=== PATIENT | female | born 2000 | race Caucasian/White ===

== ENCOUNTER → 2019-04-15 13:30 | Outpatient (BNVA) | payer MEDICAID, SELFPAY | PROVIDERS: PCP Nurse Practitioner; Visit Provider Obstetrics & Gynecology | DX: Z34.83 Encounter for supervision of other normal pregnancy, third trimester (principal) | CPT/HCPCS: 81000 ==

== ENCOUNTER → 2019-04-29 13:55 | Outpatient (BNVA) | payer MEDICAID, SELFPAY | PROVIDERS: PCP Nurse Practitioner; Visit Provider Obstetrics & Gynecology | DX: Z34.90 Encounter for supervision of normal pregnancy, unspecified, unspecified trimester (principal) | CPT/HCPCS: 81000; 84315; 87081 ==

== ENCOUNTER → 2019-05-06 14:02 | Outpatient (BNVA) | payer MEDICAID, SELFPAY | PROVIDERS: PCP Nurse Practitioner; Visit Provider Obstetrics & Gynecology | DX: Z01.89 Encounter for other specified special examinations (principal) | CPT/HCPCS: 81000; 84315 ==

== ENCOUNTER → 2019-05-13 15:00 | Outpatient (BNVA) | payer MEDICAID, SELFPAY | PROVIDERS: Family Provider Nurse Practitioner; PCP Nurse Practitioner; Visit Provider Obstetrics & Gynecology | DX: Z01.89 Encounter for other specified special examinations (principal) | CPT/HCPCS: 81000; 84315 ==

== ENCOUNTER 2019-05-15 01:00 | Inpatient (IN) | payer MEDICAID, SELFPAY ==
[2019-05-15] VITALS (57 sets, daily range): BP systolic 0–161; BP diastolic 0–108; PULSE 86–124; RESP 16–18; TEMP 36.6–37; O2SAT 96–100
--- NOTE | 2019-05-15 01:43 | PC.NURSE ---
Dr. Grider at bedside to assess patient and discuss POC
[2019-05-15] MEDS: lactated ringers 1,000 ML 999 ML IV (01:46)
--- NOTE | 2019-05-15 01:55 | P.HP_ITS ---
Providers/Chief Complaint Admitting Physician: david salinas DO Primary Care Provider: MED Zee Chief Complaint: CONTRACTIONS HPI CHIEF FINANCIAL OFFICER History of Present Illness Ashley Gardiner is a 19 year old female at 39 + weeks with uncomplicated history. Presents to labor and delivery with uterine contractions described as every 4 minutes onset last p.m. Denies any rupture of membranes no bleeding no headaches no visual changes no right upper quadrant midepigastric pain. Upon presenting to labor and delivery category 1 tracing uterine contractions every 4 minutes moderate to palpation cervix is 6 cm dilated vertex bulging membranes. Patient is admitted for labor/delivery. Group B strep is negative Patient denies antepartum complications Medications vitamins Allergies none Review of Systems General: Reports: 10 or more systems reviewed and unremarkable except in HPI and below Const: Reports: fever, chills and fatigue Eyes: Denies: change in vision Card: Denies: chest pain, palpitations, irregular heart rhythm or swelling of feet/ankles Resp: Denies: shortness of breath, productive cough, non-productive cough or wheezing GI: Denies: abdominal pain, nausea or vomiting : Denies: flank pain, difficulty urinating, painful urination, urinary frequency or urinary urgency Musc: Denies: back pain, extremity pain or extremity swelling Skin/Breast: Denies: rash Neuro: Denies: headache Psych: Denies: anxiety or depression Endo: Denies: cold intolerance, hot flashes or heat intolerance Varun/Lymph: Denies: easy bruising or easy bleeding All/Imm: Denies: hives Medications/Allergies Allergies Allergy/AdvReac Type Severity Reaction Status Date / Time No Known Allergies Allergy Unverified 04/12/19 07:34 [facility] CHIEF FINANCIAL OFFICER Statuses (acute, chronic, etc) shown below reflect problem list status as previously entered and may not be historically accurate Family History Family/Other Diabetes maternal great grandmother Social History Smoking and tobacco status: never smoked Alcohol intake: never History History 2 Term 1 Miscarriages/Ectopic 0 0 Living Children 1 Past Pregnancies Del. Date GA/Weeks Outcome Route Wt Inf Gender Labor Lgth Comp. Anesth esia Location 05/05/17 37 live - full term Vaginal 2.821 kg Female local Other Female Reproductive History Hx Age of Menarche: 12 Duration of menses: 6-7 days Cycle Length: every 30 days Menstrual flow: normal/abnormal: normal Sexual History Are you sexually active?: Yes How long have you been with your current partner?: since 2015 What is your sexual preference?: Heterosexual Hx Sexually Transmitted Diseases: No Have you ever tested positive for HIV?: No Contraception control method: Pills and Progestin IUCD Vitals/I&O/Wt Last Vital Signs Pulse 105 H 05/15/19 01:44 BP 141/94 05/15/19 01:44 Physical Exam Narrative: EXAM NARRATIVE: Alert and oriented no acute distress. Category 1 tracing uterine contractions every 4 minutes. Skin clear no rashes HEENT unremarkable Neck supple nontender no masses Lungs clear to auscultation Heart regular sinus rhythm no murmur Abdomen gravid soft nontender palpable contractions moderate vertex by Odin's estimated weight 7 pounds Pelvic exam: Deferred at this time by me per nurse patient is 80% effaced 6 cm vertex -3/5 bulging membranes Pelvis clinically proven to 6+ pounds Extremities grossly intact Neurologic: Patella DTR 2/4 no clonus no edema Psych oriented to time place and circumstance A&P Assessment and plan (1) Uterine contractions: Patient is admitted at 39+ weeks and early labor. Category 1 tracing uterine contractions every 4 minutes. Anticipate vaginal delivery. Patient does require epidural anesthesia notified. Patient counseled for labor and delivery understands cannot predict outcome possible need for operative delivery. All questions answered. Permits have been signed. Status: Acute Attestations Medical Necessity Statement*: Admit for labor Coding Level of Care Code Acute Safety Associate for g Fwd Diagnoses Uterine contractions
[2019-05-15 02:16] LABS: Basophils % 0.2 %; Eosinophils # 0.1 10^3/uL (0.0-0.8); Eosinophils % 0.6 %; Hematocrit 30.2 % (37.0-47.0); Hemoglobin 10.3 g/dL (11.5-15.3); Lymphocytes # 1.9 10^3/uL (1.5-6.5); Lymphocytes % 14.6 %; Mean Corpuscular HGB Conc 34.1 g/dL (30.0-36.0); Mean Corpuscular Hemoglobin 28.9 pg (28.0-34.0); Mean Corpuscular Volume 84.6 fL (81-99); Mean Platelet Volume 11.4 fL (7.4-10.4); Monocytes # 0.7 10^3/uL (0.2-0.9); Neutrophils # 10.2 10^3/uL (1.8-8.0); Neutrophils % 77.8 %; Nucleated Red Blood Cells % 0 %; Platelet Count 210 10^3/cmm (130-400); Red Blood Count 3.57 10^6/uL (4.1-5.3); Red Cell Distribution Width 11.9 % (12.1-15.1); White Blood Count 13.1 10^3/uL (4.5-13.0)
[2019-05-15] MEDS: lactated ringers 1,000 ML 125 ML IV (02:55)
--- NOTE | 2019-05-15 03:44 | P.PN_ITS ---
SATELLITE TECHNICIAN Subjective Subjective: Interval history: Patient doing well epidural in place category 1 tracing Labor: Station: -1 Amniotic Membrane Status: Bulging Vitals/I&O/Wt Last Vital Signs Pulse 110 H 05/15/19 03:43 BP 151/98 05/15/19 03:43 Pulse Ox 100 05/15/19 03:40 Physical Exam Narrative: EXAM NARRATIVE: Alert and oriented no acute distress comfortable with epidural. Cervical examination 100% effaced/9 cm/vertex/+2/5 AROM clear fluid Data : 05/15/19 01:30 A&P Additional A&P Information Amniotomy performed clear fluid now 9 cm with epidural in place anticipate vaginal delivery. Attestations Medical Necessity Statement*: none Coding Level of Care Code Acute Cable Systems Installer for Rebeka Hagen
--- NOTE | 2019-05-15 03:51 | PC.NURSE ---
in manager non profit room and requested for delivery. to beside
--- NOTE | 2019-05-15 04:16 | PM.DELIVERY ---
 Delivery Note: Date of delivery: May 15, 2019 Pre-Delivery Course: Unremarkable. Category 1 tracing spontaneous uterine contractions labor epidural. Delivery: With epidural in place category 1 tracing patient progressed nicely through first stage of labor becoming complete and complete and +4/5. With 1 set of maternal pushes had spontaneous vaginal delivery viable male occiput anterior. Weight 3320 g Apgars 7/9. Delayed cord clamping was performed with infant laying on mom's abdomen. Cord was clamped and cut and infant handed to nurses in good condition. Mother was given IV Pitocin with delivery of the body of the had good uterine contractility spontaneous delivery of placenta complete and three-vessel. Inspection of vagina cervix showed no laceration. Cord bloods were obtained new sponges were left inside the vagina. There were no complications baby in room with parents bonding. Post-Delivery Status: Doing well immediate A&P Assessment and plan (1) Uterine contractions: Status: Acute (2) Vaginal delivery: Doing well at this time Status: Acute Code(s): O80 - Encounter for full-term uncomplicated delivery Coding Level of Care Code Acute Rn Care Transition for Chg Fwd History Expanded Problem Focused Exam Expanded Problem Focused Medical Decision Making Moderate Complexity Diagnoses Uterine contractions Vaginal delivery O80 Time Spent (min) 35 Comment 35 minutes spent in direct patient care
--- NOTE | 2019-05-15 04:19 | ANES.PREANE2 ---
Pre-Anesthetic Assessment Pre-Anesthetic Assessment: Height/Weight: Pulse BP Pulse Ox 109 H 153/81 100 05/15/19 04:13 05/15/19 04:13 05/15/19 03:50 Preop Diagnosis: labor pain Proposed Procedure: epidural Familial anesthetic complications: none Was Beta Fawad taken within 24 hours: N/A Last Intake: 00:00 Social: Social History: No alcohol and No tobacco Exam: Pre-Anes Outpt Exam: alert, oriented x 3, clear to auscultation bilaterally and regular rate & rhythm Airway: Submandibular: WNL Cervical ROM: WNL MP: 1 Pulmonary: Pulmonary: None reported CV/HEM: CV/HEM: None reported : : None reported Hepatic: Hepatic: None reported GI: GI: None reported Metabolic: Metabolic: None reported Musc/skel: Musc/skel: None reported Neuropsych: Neuropsych: None reported Anesthetic Plan: ASA status: 2 Anesthesia: Anesthesia Evaluation and Regional (specify below) Other: lumbar epidural catheter Risk of > 500 ml blood loss (7ml/kg in children): No PFSH Anesthesia PFSH: Family History Family/Other Diabetes maternal great grandmother Social History Smoking and tobacco status: never smoked Alcohol intake: never Female Reproductive History: Para: 1 Spontaneous abortions: No Data Anesthesia CBC & Chem 7: 05/15/19 01:30 Other Labs: Laboratory Results - last 48 hr 05/15/19 01:30 WBC 13.1 H RBC 3.57 L Hgb 10.3 L Hct 30.2 L MCV 84.6 MCH 28.9 MCHC 34.1 RDW 11.9 L Plt Count 210 MPV 11.4 H Neut % (Auto) 77.8 Lymph % (Auto) 14.6 Bonner % (Auto) 5.0 Eos % (Auto) 0.6 Baso % (Auto) 0.2 Neut # (Auto) 10.2 H Lymph # (Auto) 1.9 Bonner # (Auto) 0.7 Eos # (Auto) 0.1 Baso # (Auto) 0.0 Nucleated RBC % (auto) 0 Nucleated RBCs # 0.0 Cardiac Studies: No Data to Display
--- NOTE | 2019-05-15 04:20 | ANES.PROC ---
Anesthesia Procedures Procedure/Date: 05/15/19 epidural Epidural: Time Out Performed: Yes Consents Signed: Procedure Consent Consent: risks and benefits reviewed and patient agrees to proceed Lumbar Level: L3-L4 Epidural position: sitting Epidural procedure: sterile prep of area, 1% lidocaine to numb the area (2cc), 18 g needle, negative for paresthesia passed, neg for paresthesia, test dose given, 1.5% xylocaine 1:200k epi (3cc), 0.2% Ropivacaine bolus ml (5cc given via pump), placed PCEA, no systemic response, sterile dressing applied, L.U.D. no apparent complications and 0.2% Ropiavacaine @ mls/hr (13cc/hr) Additional Comments: DIANNA at 4cm. catheter depth at skin is 9cm
[2019-05-15] MEDS: oxytocin 30 UNIT/500 ML BAG 600 UNIT IV (05:01)
[2019-05-15] MEDS: prenatal vitamin Capsule 1 CAP PO (08:39)
[2019-05-15] MEDS: docusate sodium 100 mg Capsule PO ×2 (08:39→18:41)
[2019-05-15] MEDS: alum-mag-hydroxide-sime 30 mL UDC PO (14:03)
[2019-05-15 17:00] LABS: Hematocrit 29.5 % (37.0-47.0); Hemoglobin 9.9 g/dL (11.5-15.3); Mean Corpuscular HGB Conc 33.6 g/dL (30.0-36.0); Mean Corpuscular Hemoglobin 28.6 pg (28.0-34.0); Mean Corpuscular Volume 85.3 fL (81-99); Mean Platelet Volume 10.9 fL (7.4-10.4); Platelet Count 221 10^3/cmm (130-400); Red Blood Count 3.46 10^6/uL (4.1-5.3); White Blood Count 11.1 10^3/uL (4.5-13.0)
[2019-05-16 04:00] VITALS: BP 114/76; PULSE 86; RESP 16; O2SAT 97
--- NOTE | 2019-05-16 07:56 | PC.NURSE ---
Updated Dr. Grider on patient status.
[2019-05-16] MEDS: prenatal vitamin Capsule 1 CAP PO (09:03)
[2019-05-16] MEDS: ferrous sulfate EC 325 mg Tablet PO (09:03)
[2019-05-16] MEDS: docusate sodium 100 mg Capsule PO (09:04)
[2019-05-16 10:15] VITALS: BP 133/82; PULSE 82; RESP 17; TEMP 37.1; O2SAT 97
--- NOTE | 2019-05-16 13:10 | PM.OBGYDC ---
Discharge Providers PHLEBOTOMY SERVICES TECHNICIAN Date of Admission: 05/15/19 01:00 Date of Discharge: 05/16/19 Attending Provider at Admission: Afshin Landry MD Attending Provider at Discharge: david salinas DO Primary Care Provider: MED Zee Diagnoses at Discharge Discharge Diagnosis (1) Uterine contractions: Status: Acute (2) Vaginal delivery: Status: Acute (3) Term delivered: Status: Acute Problem details: Patient underwent spontaneous vaginal delivery uncomplicated Reason for Visit Reason for Visit: Reason For Visit: CONTRACTIONS Hospital Course Discharge Summary: Patient was admitted at term in active labor. Category 1 tracing. Underwent labor epidural and AR a.m. of clear fluid progressed nicely through first stage of labor. Spontaneous vaginal delivery occiput anterior uncomplicated. Viable Apgars 8/9 Postdelivery patient and baby did well up and about discharge home 24 hours after delivery. Plan follow-up in 2 weeks Information Peripartum Data: Infant Delivery Method: Vaginal Physical Exam Narrative: EXAM NARRATIVE: Alert and oriented no acute distress lying in bed. Has been up. Abdomen U- 2 firm nontender abdomen soft nontender Extremities intact full range of motion no calf tenderness Pelvic exam, deferred Discharge Data Data Completed and Pending: Labs from last 24 hours 05/15/19 16:40 WBC 11.1 RBC 3.46 L Hgb 9.9 L Hct 29.5 L MCV 85.3 MCH 28.6 MCHC 33.6 RDW 12.0 L Plt Count 221 MPV 10.9 H Vitals: Last Vital Signs Temp 98.7 F 05/16/19 10:15 Pulse 82 05/16/19 10:15 Resp 17 05/16/19 10:15 BP 133/82 05/16/19 10:15 Pulse Ox 97 05/16/19 10:15 Discharge Plan Discharge Patient Disposition: Home, Self-Care Condition: Stable Prescriptions: New acetaminophen 325 mg Tablet 650 mg PO Q6H PRN (Reason: Mild pain or temp > 100.4) 30 Days Qty: 100 RF: 0 acetaminophen 325 mg Tablet 650 mg PO Q6H PRN (Reason: mild pain for temp >100.4.) Qty: 100 RF: 0 ferrous sulfate 325 mg (65 mg iron) Tablet,Delayed Release (Dr/Ec) 325 mg PO DAILY Qty: 60 RF: 0 -U 106.5-1 mg Capsule 1 cap PO DAILY 100 Days Qty: 100 RF: 0 Continued prenat.vits,soha,qnj-lvwa-[id number] Tablet 1 tab PO ONCE RF: 0 Discharge Orders: Discharge Order (Routine); Ordered 05/16/19 Ordered By: David Salinas Discharge Diet: Regular Patient Instructions: Vitamins (By mouth), Breast Care for the Breast Feeding Mother (DC), Vaginal Delivery (DC), OB Discharge Report, OB Food/Drug Interaction Guide, OB Care at Home, OB Home Care, OB Proud Parent Packet, OB Vaginal Deliveries Discharge Attestations PHLEBOTOMY SERVICES TECHNICIAN Time Spent in Discharge Care*: less than 30 min Coding Level of Care Code Acute Shake Backboard Notcher for Chg Fwd Diagnoses Uterine contractions Vaginal delivery O80 Term delivered O80
[2019-05-16 14:15] VITALS: BP 118/72; PULSE 78; RESP 16; TEMP 36.9; O2SAT 97
== END 2019-05-16 16:01 | disposition home or self-care (01) | DRG 807 ==
LOC: OBGYN 01:28
PROVIDERS: Obstetrics & Gynecology Female Pelvic Medicine and Reconstructive Surgery; Admitting Provider Obstetrics & Gynecology; Family Provider Nurse Practitioner; PCP Nurse Practitioner; Visit Provider Obstetrics & Gynecology
DX: O62.3 Precipitate labor (principal); Z37.0 Single live birth; Z3A.39 39 weeks gestation of pregnancy
CPT/HCPCS: 12345; 36415; 51702; 59025; 59409; 85025; 85027; 96360; 96361; 99211; J2795

== ENCOUNTER → 2024-06-21 13:11 | Outpatient (BNVA) | payer BC, MEDICAID, SELFPAY | PROVIDERS: Family Provider Nurse Practitioner; PCP Nurse Practitioner; Visit Provider Nurse Practitioner Women's Health | DX: Z34.80 Encounter for supervision of other normal pregnancy, unspecified trimester (principal); Z34.90 Encounter for supervision of normal pregnancy, unspecified, unspecified trimester; N91.2 Amenorrhea, unspecified | CPT/HCPCS: 80307; 81025; 84702; 85025; 86592; 86762; 86803; 86850; 86900; 87086; 87340; 87491; 87591; 87661; 87806 ==

== ENCOUNTER → 2024-06-27 10:50 | Outpatient (BNVA) | payer BC, MEDICAID, SELFPAY | PROVIDERS: Family Provider Nurse Practitioner; PCP Nurse Practitioner; Visit Provider Nurse Practitioner Women's Health | DX: Z36.87 Encounter for antenatal screening for uncertain dates (principal); Z34.91 Encounter for supervision of normal pregnancy, unspecified, first trimester | CPT/HCPCS: 76801 ==

== ENCOUNTER → 2024-07-05 08:24 | Outpatient (BNVA) | payer BC, MEDICAID, SELFPAY | PROVIDERS: Family Provider Nurse Practitioner; PCP Nurse Practitioner; Visit Provider Nurse Practitioner Women's Health | DX: Z34.90 Encounter for supervision of normal pregnancy, unspecified, unspecified trimester (principal) | CPT/HCPCS: 84315 ==

== ENCOUNTER → 2024-07-13 10:38 | Outpatient (BNVA) | payer BC, MEDICAID, SELFPAY | PROVIDERS: Family Provider Nurse Practitioner; PCP Nurse Practitioner; Visit Provider Obstetrics & Gynecology | DX: Z34.90 Encounter for supervision of normal pregnancy, unspecified, unspecified trimester (principal); Z01.419 Encounter for gynecological examination (general) (routine) without abnormal findings | CPT/HCPCS: 84315; 87624 ==

== ENCOUNTER → 2024-08-01 09:44 | Outpatient (BNVA) | payer BC, MEDICAID, SELFPAY | PROVIDERS: Family Provider Nurse Practitioner; PCP Nurse Practitioner; Visit Provider Obstetrics & Gynecology | DX: Z34.90 Encounter for supervision of normal pregnancy, unspecified, unspecified trimester (principal) | CPT/HCPCS: 84315 ==

== ENCOUNTER 2024-08-30 14:13 | Outpatient (CLI) | payer BC, MEDICAID, SELFPAY | END 2024-08-30 14:14 | disposition home or self-care (01) | PROVIDERS: PCP Nurse Practitioner; Visit Provider Obstetrics & Gynecology | DX: Z36.9 Encounter for antenatal screening, unspecified (principal) | CPT/HCPCS: 76805 ==

== ENCOUNTER → 2024-09-27 14:47 | Outpatient (BNVA) | payer BC, MEDICAID, SELFPAY | PROVIDERS: Family Provider Nurse Practitioner; PCP Nurse Practitioner; Visit Provider Nurse Practitioner Women's Health | DX: Z34.90 Encounter for supervision of normal pregnancy, unspecified, unspecified trimester (principal); R82.71 Bacteriuria | CPT/HCPCS: 84315; 87077; 87086; 87184 ==

== ENCOUNTER → 2024-10-24 09:22 | Outpatient (BNVA) | payer BC, MEDICAID, SELFPAY | PROVIDERS: Family Provider Nurse Practitioner; PCP Nurse Practitioner; Visit Provider Nurse Practitioner Women's Health | DX: Z36.9 Encounter for antenatal screening, unspecified (principal); Z34.90 Encounter for supervision of normal pregnancy, unspecified, unspecified trimester | CPT/HCPCS: 76816; 82950; 84315; 85025; 87086 ==

== ENCOUNTER → 2024-11-09 13:26 | Outpatient (BNVA) | payer BC, MEDICAID, SELFPAY | PROVIDERS: Family Provider Nurse Practitioner; PCP Nurse Practitioner; Visit Provider Obstetrics & Gynecology | DX: Z34.90 Encounter for supervision of normal pregnancy, unspecified, unspecified trimester (principal) | CPT/HCPCS: 84315 ==

== ENCOUNTER → 2024-11-21 09:14 | Outpatient (BNVA) | payer BC, MEDICAID, SELFPAY | PROVIDERS: Family Provider Nurse Practitioner; PCP Nurse Practitioner; Visit Provider Obstetrics & Gynecology | DX: Z34.90 Encounter for supervision of normal pregnancy, unspecified, unspecified trimester (principal) | CPT/HCPCS: 84315 ==

== ENCOUNTER → 2024-12-06 10:16 | Outpatient (BNVA) | payer BC, MEDICAID, SELFPAY | PROVIDERS: PCP Nurse Practitioner; Visit Provider Nurse Practitioner Women's Health | DX: Z34.90 Encounter for supervision of normal pregnancy, unspecified, unspecified trimester (principal); Z3A.35 35 weeks gestation of pregnancy | CPT/HCPCS: 76816; 84315 ==

== ENCOUNTER → 2024-12-22 14:54 | Outpatient (BNVA) | payer BC, MEDICAID, SELFPAY | PROVIDERS: PCP Nurse Practitioner; Visit Provider Obstetrics & Gynecology | DX: Z34.90 Encounter for supervision of normal pregnancy, unspecified, unspecified trimester (principal) | CPT/HCPCS: 84315; 87081 ==

== ENCOUNTER → 2024-12-26 12:59 | Outpatient (BNVA) | payer BC, MEDICAID, SELFPAY | PROVIDERS: PCP Nurse Practitioner; Visit Provider Nurse Practitioner Women's Health | DX: Z34.90 Encounter for supervision of normal pregnancy, unspecified, unspecified trimester (principal); O99.019 Anemia complicating pregnancy, unspecified trimester | CPT/HCPCS: 84315; 85025 ==

== ENCOUNTER 2025-01-02 11:35 | Outpatient (CLI) | payer BC, MEDICAID, SELFPAY ==
[2025-01-02] VITALS (7 sets, daily range): BP systolic 119–128; BP diastolic 67–86; PULSE 92–123; BMI 28.3
== END 2025-01-02 14:19 | disposition home or self-care (01) ==
LOC: OPOB 11:35 → OBGYN 11:37
PROVIDERS: Absent Provider Obstetrics & Gynecology; PCP Nurse Practitioner Family; Visit Provider Family Medicine
DX: O26.899 Other specified pregnancy related conditions, unspecified trimester (principal); Z3A.00 Weeks of gestation of pregnancy not specified
CPT/HCPCS: 59025; 99211

== ENCOUNTER 2025-01-02 12:30 | Oncology outpatient (recurring) (ONCR) | payer BC, MEDICAID, SELFPAY ==
[2024-12-29 15:06] VITALS: BP 130/90; PULSE 97; RESP 16; TEMP 36.5; O2SAT 98
[2024-12-29] MEDS: iron sucrose 200 MG in sodium chloride 0.9% (100 ml) 100 ML IV (15:07)
[2024-12-29 15:47] VITALS: BP 120/83; PULSE 101; O2SAT 98
== END 2025-01-03 23:59 | disposition home or self-care (01) ==
PROVIDERS: PCP Nurse Practitioner; Visit Provider Nurse Practitioner Women's Health
DX: Z34.90 Encounter for supervision of normal pregnancy, unspecified, unspecified trimester (principal)
CPT/HCPCS: 84315; 96365; J1756

== ENCOUNTER 2025-01-06 10:00 | Oncology outpatient (recurring) (ONCR) | payer BC, MEDICAID, SELFPAY ==
[2025-01-04 12:39] VITALS: BP 124/80; PULSE 97; RESP 17; TEMP 36.6; O2SAT 99
[2025-01-04] MEDS: iron sucrose 200 MG in sodium chloride 0.9% (100 ml) 100 ML IV (12:45)
[2025-01-04 13:33] VITALS: BP 136/93
== END 2025-02-03 23:59 | disposition home or self-care (01) ==
PROVIDERS: PCP Nurse Practitioner Family; Visit Provider Nurse Practitioner Women's Health
DX: Z53.9 Procedure and treatment not carried out, unspecified reason (principal)
CPT/HCPCS: 96365; J1756; J7050

== ENCOUNTER 2025-01-09 11:40 | Inpatient (IN) | payer BC, MEDICAID, SELFPAY ==
[2025-01-09] VITALS (50 sets, daily range): BP systolic 122–156; BP diastolic 68–97; PULSE 83–128; RESP 16; TEMP 35.9–36.9; O2SAT 98–100; BMI 28.1
[2025-01-09 13:07] LABS: Hematocrit 31.6 % (36-47); Hemoglobin 9.90 g/dL (11.27-16.99); Mean Corpuscular HGB Conc 31.3 g/dL (30-55); Mean Corpuscular Hemoglobin 25.6 pg (27-33); Mean Corpuscular Volume 81.9 fl (85-98); Nucleated Red Blood Cells % 0 %; Platelet Count 184 10^3/cmm (157-399); Red Blood Count 3.86 10^6/uL (3.85-5.65); White Blood Count 9.35 10^3/uL (3.29-11.43)
[2025-01-09] MEDS: oxytocin 30 UNIT/500 ML BAG IV (13:18)
--- NOTE | 2025-01-09 14:10 | PM.OBGYHP ---
Providers/Chief Complaint Admitting Physician: Clarke Ceballos MD Primary BOBCAT OPERATOR: Clarke Ceballos MD Primary Care Provider: Jacquelin Kent NP Chief Complaint: monitoring bp HPI BOBCAT OPERATOR History of Present Illness Ashley Gardiner is a 24 year old female EDC January 13, 2025 At 39 w 3 d Seen in clinic today Found to have mildly elevated BPs No headache, blurry vision, pain No c/o + movements Now admitted for induction of labor Present Details : 3 Para: 2 Labs Rubella: Immune RPR: Negative GBS: Negative Medications/Allergies Home Medications ?Medication ?Instructions ?Recorded ?Confirmed ?Last Taken ?Type docusate sodium 100 mg capsule 100 mg PO BID #60 caps 12/06/24 01/09/25 Unknown Rx (Colace) magnesium hydroxide 400 mg/5 mL 15 ml PO BID PRN constipation #355 12/06/24 01/09/25 Unknown Rx oral suspension (Milk of Magnesia) mL Allergies Allergy/AdvReac Type Severity Reaction Status Date / Time No Known Allergies Allergy Verified 01/09/25 09:07 PFSH BOBCAT OPERATOR PFSH: Medical History No pertinent past medical history neghx: htn, dm, thyroid, dvt/pe PCP: None Surgical History No pertinent past surgical history Family History Family/Other Diabetes maternal great grandmother Father Hypertension Grandmother Diabetes Denies family history of Colon cancer Ovarian cancer Heart disease Breast cancer Uterine cancer Thyroid disease Stroke Social History Smoking and tobacco/nicotine status: never used tobacco/nicotine Alcohol intake: never Substance/Drug Use: never Other Female Reproductive History: Hx Age of Menarche: 12 Duration of menses: 6-7 days Cycle Length: every 30 days Menstrual flow: normal/abnormal: normal History History History 3 Term 2 0 Miscarriages/Ectopic 0 Living Children 2 Past Pregnancies Del. Date GA/Weeks Outcome Route Wt Inf Gender Labor Lgth Comp. Anesthesia Location 05/05/17 37 live - full term Vaginal 6 lb 3.5 oz Female local Care MARIA ELENA Calculator Estimated Delivery Date Method Current WG Current Estimate 01/13/25 LMP (Certain) 39w 4d Other Estimates 01/10/25 Ultrasound #1 40w 0d Expected Delivery Route/Plan Hx of x2 Specific Issues/Plans NAUSEA ACID REFLUX ANEMIA Vitals/I&O/Wt Last Vital Signs Temp 96.6 F L 01/09/25 17:32 Pulse 100 01/10/25 01:40 Resp 16 01/09/25 12:55 BP 145/72 01/10/25 01:40 Pulse Ox 100 01/09/25 23:48 O2 Del Method Room Air 01/09/25 12:08 01/09/25 01/09/25 01/10/25 14:59 22:59 06:59 Intake Total 96.450 / 96.450 926.450 / 1022.900 Balance 96.450 / 96.450 926.450 / 1022.900 Weight last 48 hrs Weight 164 lb Physical Exam Narrative: Weight 164 lbs; 5?4? BPs 135 / 87; 132 / 86 General comfortable, awake, alert Lungs: clear Cor: RRR FH 37 cm, cephalic Cervix 3 cm / 75% / -2 / posterior Ext: no edema External monitor: heart tracing good variability, + accelerations Data 01/09/25 12:00 Results Labs OB ([facility]): Obstetrics US 12/06/24 Blood Type O Positive 01/09/25 Antibody Screen Negative 01/09/25 Hct, (36-47) 31.6 % L 01/09/25 Hgb, (11.27-16.99) 9.90 g/dL L 01/09/25 Rho(D) Type Rh positive 01/09/25 Plt Count, (157-399) 184 10^3/cmm 01/09/25 Hep Bs Antigen, (Nonreactive) Non-reactive 06/21/24 Hepatitis C Antibody, (Nonreactive) Non-reactive 06/21/24 Rubella IgG Antibody, (0.0-10.0) 155.9 IU/mL H 06/21/24 RPR, (Nonreactive) Nonreactive 06/21/24 HIV 1&2 Ab & HIV 1 Ag, (Non-Reactiv) Non-reactive 06/21/24 Glucose 1 Hr 50 gm, (85-140) 119 mg/dL 10/24/24 Ser , Semi-Qnt 04225.00 mIU/mL 06/21/24 HCG, Qual, (Negative) Positive H 06/21/24 Urine Opiates Screen, (Negative) Negative ng/mL 06/21/24 Ur Barbiturates Screen, (Negative) Negative ng/mL 06/21/24 Ur Phencyclidine Scrn, (Negative) Negative ng/mL 06/21/24 Ur Amphetamines Screen, (Negative) Negative ng/mL 06/21/24 U Benzodiazepines Scrn, (Negative) Negative ng/mL 06/21/24 Urine Cocaine Screen, (Negative) Negative ng/mL 06/21/24 U Marijuana (THC) Screen, (Negative) Negative ng/mL 06/21/24 Micro Urine Specimen 10/24/24 Pap Smear Interpret See note 07/13/24 A&P Assessment and plan 1. : 39 w 3 d Mildly elevated BPs Admit for induction of labor Fetus reassuring Plan start pitocin h/o x two PDMP PDMP Reviewed: Not Reviewed Attestations Medical Necessity Statement*: patient at 39 w 3 d, admitted for induction of labor Coding Level of Care Code Acute Code for Chg Fwd Diagnoses Z34.90
[2025-01-09] MEDS: ROPivacaine premix 200 MG/100 ML PREMIX 10 MG EPIDURAL (23:50)
--- NOTE | 2025-01-09 23:53 | ANES.PREANE2 ---
Pre-Anesthetic Assessment Height/Weight: Height 1.63 m Weight 74.389 kg Temp Pulse Resp BP Pulse Ox O2 Del Method 96.6 F L 97 16 145/68 100 Room Air 01/09/25 17:32 01/09/25 23:49 01/09/25 12:55 01/09/25 23:49 01/09/25 23:48 01/09/25 12:08 Preop Diagnosis: intrauterine labor epidural Familial anesthetic complications: none Was Beta Fawad taken within 24 hours: N/A Was Clonidine taken within 24 hours: N/A Social No alcohol and No tobacco Exam alert, oriented x 3 and clear to auscultation bilaterally Airway Mallampati: Class II Dentition: full History/ROS No significant history except as noted Pulmonary None reported CV/HEM Anemia None reported Hepatic None reported GI Gastroesophageal Reflux Disease Metabolic None reported Musc/skel None reported Neuropsych None reported Anesthetic Plan ASA status: 2 Anesthesia: Anesthesia Evaluation and Regional (specify below) Risk of > 500 ml blood loss (7ml/kg in children): Yes, adequate IV access and fluids planned Medications/Allergies Home Medications ?Medication ?Instructions ?Recorded ?Confirmed ?Last Taken ?Type docusate sodium 100 mg capsule 100 mg PO BID #60 caps 12/06/24 01/09/25 Unknown Rx (Colace) magnesium hydroxide 400 mg/5 mL 15 ml PO BID PRN constipation #355 12/06/24 01/09/25 Unknown Rx oral suspension (Milk of Magnesia) mL Allergies Allergy/AdvReac Type Severity Reaction Status Date / Time No Known Allergies Allergy Verified 01/09/25 09:07 Current Medications Generic Name Dose Route Start Last Admin Trade Name Esther PRN Reason Stop Dose Admin Oxytocin 30 unit in 500 mls @ 1 mls/hr 01/09/25 13:00 01/09/25 20:56 Pitocin IV 5 milliunit/min .Q24H STEFFI 5 mls/hr Protocol Titration 1 MILLIUNIT/MIN Dextrose/Lactated Ringer's 1,000 mls @ 125 mls/hr 01/09/25 13:00 01/09/25 21:25 Dextrose 5%-Lactated Ringers IV 122 mls/hr .Q8H STEFFI Administration Lactated Ringer's 1,000 mls @ 999 mls/hr 01/09/25 22:04 01/09/25 22:38 Lactated Ringers IV 999 mls/hr .Q1H1M PRN Administration See label comments PFSH Anesthesia Medical History No pertinent past medical history neghx: htn, dm, thyroid, dvt/pe PCP: None Surgical History No pertinent past surgical history Family History Family/Other Diabetes maternal great grandmother Father Hypertension Grandmother Diabetes Denies family history of Colon cancer Ovarian cancer Heart disease Breast cancer Uterine cancer Thyroid disease Stroke Social History Smoking and tobacco/nicotine status: never used tobacco/nicotine Alcohol intake: never Substance/Drug Use: never Female Reproductive History : 3 Para: 1 Spontaneous abortions: No Data Anesthesia 01/09/25 12:00 Short CBC 01/09/25 Range/Units 12:00 WBC 9.35 (3.29-11.43) 10^3/uL Hgb 9.90 L (11.27-16.99) g/dL Hct 31.6 L (36-47) % MCV 81.9 L (85-98) fl Plt Count 184 (157-399) 10^3/cmm Neut % (Auto) 77.5 % Neut # (Auto) 7.24 (1.8-7.7) 10^3/uL Blood Bank 01/09/25 12:00 Blood Type O Positive Rho(D) Type Rh positive Antibody Screen Negative Anesthesia Procedures Epidural Time Out Performed: Yes Consents Signed: Procedure Consent Consent: requested by attending/covering physician, from patient, risks and benefits reviewed and patient agrees to proceed Lumbar Level: L4-L5 Epidural position: sitting Epidural procedure: sterile prep of area, 1% lidocaine to numb the area, 18 g needle, negative for paresthesia passed, neg for paresthesia, test dose given, 1.5% xylocaine 1:200k epi, 0.2% Ropivacaine bolus ml (5), placed PCEA, no systemic response, sterile dressing applied, L.U.D. no apparent complications and 0.2% Ropiavacaine @ mls/hr (13) Additional Comments: DIANNA 5cm, catheter easily threaded to 5cm in the space. VS monitored throughout and remained stable. Pt educated on BURNER TECHNICIAN and reports adequate pain relief with epidural
[2025-01-10] VITALS (22 sets, daily range): BP systolic 115–155; BP diastolic 71–95; PULSE 69–113; RESP 15–16; TEMP 36.6–36.7
--- NOTE | 2025-01-10 00:20 | P.PCNOB_ITS ---
Delivery Note: Date of delivery: January 10, 2025 Pre-delivery diagnoses: 39 w 3 d elevated BPs induction of labor Post-delivery diagnoses: 39 w 3 d elevated BPs induction of labor vaginal delivery Procedure: induction of labor vaginal delivery Op report anesthesia: Epidural Delivering Physician: Clarke Ceballos MD Estimated blood loss (mL): 300 Findings: , vigorous female infant Cord gases and blood obtained Normal placenta and cord No episiotomy / lacerations EBL: 300 cc No complications Pre-Delivery Course: normal labor course fetus reassuring throughout Delivery: vaginal Post-Delivery Status: good History History History 3 Term 2 0 Miscarriages/Ectopic 0 Living Children 2 Past Pregnancies Del. Date GA/Weeks Outcome Route Wt Inf Gender Labor Lgth Comp. Anesth esia Location 05/05/17 37 live - full term Vaginal 6 lb 3.5 oz Female local A&P Assessment and plan 1. Vaginal delivery: PDMP PDMP Reviewed: Not Reviewed Coding Level of Care Code Acute Code for Chg Fwd Diagnoses Vaginal delivery O80
[2025-01-10] MEDS: alum-mag-hydroxide-sime 30 mL UDC PO (03:34)
[2025-01-10 13:43] LABS: Hematocrit 29.4 % (36-47); Hemoglobin 9.20 g/dL (11.27-16.99); Mean Corpuscular HGB Conc 31.3 g/dL (30-55); Mean Corpuscular Hemoglobin 25.8 pg (27-33); Mean Corpuscular Volume 82.6 fl (85-98); Platelet Count 176 10^3/cmm (157-399); Red Blood Count 3.56 10^6/uL (3.85-5.65); White Blood Count 10.03 10^3/uL (3.29-11.43)
[2025-01-11 04:00] VITALS: BP 119/76; PULSE 72
[2025-01-11] MEDS: PRENATAL VIT NO.130/IRON/FOLIC 1 EACH TABLET PO (05:35)
[2025-01-11 09:00] VITALS: BP 118/76; PULSE 92; RESP 15; TEMP 36.6; TEMP 36.7; O2SAT 97
--- NOTE | 2025-01-11 13:33 | ANE.PACU2 ---
Inpatient post-anesthesia follow up: Airway intact: Yes Vital signs: Temperature 98 F Pulse Rate 92 Respiratory Rate 16 Blood Pressure 124/75 Pulse Oximetry 97 Oxygen Delivery Me thod Room Air Oxygen Flow Rate Fraction of Inspir ed Oxygen Hydration adequate: Yes Nausea and vomiting: No Pain level: 1 Mental status: Baseline Epidural Start/End: Epidural Start Date: 01/09/25 Epidural Start Time: 13:30 Epidural End Date: 01/10/25 Epidural End Time: 01:12
[2025-01-11 13:37] VITALS: BP 124/75; PULSE 92; RESP 16; TEMP 36.6; O2SAT 97
--- NOTE | 2025-01-11 14:05 | P.PN_ITS ---
WATER QUALITY ASSISTANT Subjective 2 Subjective: Interval history: no c/o no bleeding, pain eating, voiding, ambulating well no dizziness, weakness, palpitations, shortness of breath caring for without any problems Labor: Station: +1 Amniotic Membrane Status: Ruptured Monitor Mode: Palpation Contraction Pattern: Regular Vitals/I&O/Wt Last Vital Signs Temp 98 F 01/11/25 13:37 Pulse 92 01/11/25 13:37 Resp 16 01/11/25 13:37 BP 124/75 01/11/25 13:37 Pulse Ox 97 01/11/25 13:37 O2 Del Method Room Air 01/11/25 09:00 Physical Exam 2 Narrative: afebrile, VS normal comfortable, awake, alert Lungs: clear Cor: RRR Abd: soft, nontender. fundus firm Ext: no edema; nontender Hgb 9.2 Data 01/10/25 13:20 A&P Assessment and plan 1. Vaginal delivery: PPD #1 doing well discharge to home today instructions and precautions given call/return if fever, chills, headache, blurry vision, nausea, vomiting, abdominal pain; vaginal bleeding or discharge; shortness of breath, chest pain, leg pains or swelling; inability to void, perineal pain or swelling; feelings of depression or mood changes; thoughts of suicide or harming others; inability to care for baby. f/u in 6 weeks or PRN 2. Anemia: encouraged iron 1-2 tabs / day eat iron- and protein-rich foods call or go to ER if dizziness, weakness, chest pain, palpitations, shortness of breath PDMP PDMP Reviewed: Not Reviewed Attestations 2 Medical Necessity Statement*: patient s/p vaginal delivery, plan to discharge to home today Coding Level of Care Code Acute Code for Chg Fwd Diagnoses Vaginal delivery O80 Anemia D64.9
--- NOTE | 2025-01-11 14:10 | P.DS_ITS ---
Discharge Providers MOTOR AND GENERATOR BRUSH CUTTER Date of Admission: 01/09/25 11:40 Date of Discharge: 01/11/25 Attending Provider at Admission: Clarke Ceballos MD Attending Provider at Discharge: Clarke Ceballos MD Consults: none Primary MOTOR AND GENERATOR BRUSH CUTTER: Clarke Ceballos MD Primary Care Provider: Jacquelin Kent NP Diagnoses at Discharge Discharge Diagnosis 1. Vaginal delivery: Details from hospital stay: 24 y.o. at 39 w 3 d was seen in clinic found to have mildly elevated BPs admitted for induction of labor patient progressed to complete dilatation fetus was reassuring throughout patient delivered vaginally without any complications She had no lacerations patient did well and was discharged to home on the first day 2. Anemia: Reason for Visit Reason for Visit: monitoring bp Brief History: 24 y.o. at 39 w 3 d was seen in clinic found to have mildly elevated BPs admitted for induction of labor Hospital Course Hospital Course 24 y.o. at 39 w 3 d was seen in clinic found to have mildly elevated BPs admitted for induction of labor patient progressed to complete dilatation fetus was reassuring throughout patient delivered vaginally without any complications She had no lacerations patient did well and was discharged to home on the first day Information Peripartum Data: Delivery Method: Vaginal Laceration description: None Episiotomy description: None complications: none Physical Exam Narrative: afebrile, VS normal comfortable, awake, alert Lungs: clear Cor: RRR Abd: soft, nontender. fundus firm Ext: no edema; nontender Hgb 9.2 History History History 3 Term 2 0 Miscarriages/Ectopic 0 Living Children 2 Past Pregnancies Del. Date GA/Weeks Outcome Route Wt Inf Gender Labor Lgth Comp. Anesth esia Location 05/05/17 37 live - full term Vaginal 6 lb 3.5 oz Female local Discharge Data Studies Completed and Pending Laboratory Results WBC 10.03 10^3/uL (3.29-11.43) 01/10/25 13:20 RBC 3.56 10^6/uL (3.85-5.65) L 01/10/25 13:20 Hgb 9.20 g/dL (11.27-16.99) L 01/10/25 13:20 Hct 29.4 % (36-47) L 01/10/25 13:20 MCV 82.6 fl (85-98) L 01/10/25 13:20 MCH 25.8 pg (27-33) L 01/10/25 13:20 MCHC 31.3 g/dL (30-55) 01/10/25 13:20 RDW 17.1 % (12.1-15.1) H 01/10/25 13:20 Plt Count 176 10^3/cmm (157-399) 01/10/25 13:20 MPV 11.5 fL (7.4-10.4) H 01/10/25 13:20 Neut % (Auto) 77.5 % 01/09/25 12:00 Lymph % (Auto) 14.3 % 01/09/25 12:00 Hardin % (Auto) 5.5 % 01/09/25 12:00 Eos % (Auto) 0.5 % 01/09/25 12:00 Baso % (Auto) 0.1 % 01/09/25 12:00 Neut # (Auto) 7.24 10^3/uL (1.8-7.7) 01/09/25 12:00 Lymph # (Auto) 1.3 10^3/uL (0.8-4.8) 01/09/25 12:00 Hardin # (Auto) 0.5 10^3/uL (0.2-0.9) 01/09/25 12:00 Eos # (Auto) 0.1 10^3/uL (0.0-0.8) 01/09/25 12:00 Baso # (Auto) 0.0 10^3/uL (0.0-0.1) 01/09/25 12:00 Nucleated RBC % (auto) 0 % 01/09/25 12:00 Nucleated RBCs # 0.0 /100WBC 01/09/25 12:00 Blood Type O Positive 01/09/25 12:00 Rho(D) Type Rh positive 01/09/25 12:00 Antibody Screen Negative 01/09/25 12:00 Procedures Performed induction of labor vaginal delivery Vitals Last Vital Signs Temp 98 F 01/11/25 13:37 Pulse 92 01/11/25 13:37 Resp 16 01/11/25 13:37 BP 124/75 01/11/25 13:37 Pulse Ox 97 01/11/25 13:37 O2 Del Method Room Air 01/11/25 09:00 Results Labs OB ([facility]): Obstetrics US 12/06/24 Blood Type O Positive 01/09/25 Antibody Screen Negative 01/09/25 Hct, (36-47) 29.4 % L 01/10/25 Hgb, (11.27-16.99) 9.20 g/dL L 01/10/25 Rho(D) Type Rh positive 01/09/25 Plt Count, (157-399) 176 10^3/cmm 01/10/25 Hep Bs Antigen, (Nonreactive) Non-reactive 06/21/24 Hepatitis C Antibody, (Nonreactive) Non-reactive 06/04 11/28 Rubella IgG Antibody, (0.0-10.0) 155.9 IU/mL H 5 RPR, (Nonreactive) Nonreactive 06/21/24 HIV 1&2 Ab & HIV 1 Ag, (Non-Reactiv) Non-reactive Glucose 1 Hr 50 gm, (85-140) 119 mg/dL 10/24/24 Ser , Semi-Qnt 05727.00 mIU/mL 06/21/24 HCG, Qual, (Negative) Positive H 06/21/24 Urine Opiates Screen, (Negative) Negative ng/mL 5 Ur Barbiturates Screen, (Negative) Negative ng/mL 06/21 Ur Phencyclidine Scrn, (Negative) Negative ng/mL Ur Amphetamines Screen, (Negative) Negative ng/mL 06/21 U Benzodiazepines Scrn, (Negative) Negative ng/mL 06/21 Urine Cocaine Screen, (Negative) Negative ng/mL 5 U Marijuana (THC) Screen, (Negative) Negative ng/mL Micro Urine Specimen 10/24/24 Pap Smear Interpret See note 07/13/24 Discharge Plan Discharge Patient Disposition: Home Condition: Stable Prescriptions: Continued docusate sodium [Colace] 100 mg capsule 100 mg PO BID Qty: 60 3RF magnesium hydroxide [Milk of Magnesia] 400 mg/5 mL suspension 15 ml PO BID PRN (Reason: constipation) Qty: 355 0RF Rx Instructions: take 15 ml twice daily as needed for constipation Discharge Order = DC NOW: Discharge Order (Routine); Ordered 01/11/25 Ordered By: Clarke Ceballos Referrals: Jennifer Gomez PULP PILER [Nurse Practitioner, MOTOR AND GENERATOR BRUSH CUTTER] - 02/22/25 11:00 am Discharge Diet: Usual diet Discharge Activity: Increase activity as tolerated Patient Instructions: Depression (DC), Opioid Safety (DC), Preeclam psia and Eclampsia After Delivery (GEN), Hemorrhage (DC), OB Discharge Report, OB Food/Drug Interaction Guide, Opioid Safety, OB Home Care, OB Vaginal Deliveries - [facility], Patient Portal & Cristina Instructions, Abnormal Bleeding Discharge Attestations MOTOR AND GENERATOR BRUSH CUTTER Time Spent in Discharge Care*: less than 30 min Coding Level of Care Code Acute Code for Chg Fwd Diagnoses Vaginal delivery O80 Anemia D64.9
== END 2025-01-11 13:45 | disposition home or self-care (01) | DRG 807 ==
LOC: OPOB 11:40 → OBGYN 11:40
PROVIDERS: Admitting Provider Obstetrics & Gynecology; PCP Nurse Practitioner Family; Visit Provider Obstetrics & Gynecology
DX: O99.02 Anemia complicating childbirth (principal); Z37.0 Single live birth; O75.89 Other specified complications of labor and delivery; Z3A.39 39 weeks gestation of pregnancy; K21.9 Gastro-esophageal reflux disease without esophagitis
CPT/HCPCS: 36415; 59025; 59409; 84315; 85025; 85027; 86850; 86900; 99211; J2590; J2795; J7120; J7121; J9999

== ENCOUNTER 2025-01-15 22:29 | Emergency (ER) | payer BC, MEDICAID, SELFPAY ==
[2025-01-15 22:30] VITALS: BP 152/110; PULSE 100; RESP 16; TEMP 36.7; O2SAT 98; BMI 26.4
--- OUTSIDE RECORDS SUMMARY | 2025-01-15 22:36 | XMS_ITS | Clinical Summary ---
Author Organization [facility] Address [address] [place]: Epic [place] [address] Care Team Providers Care Termite Control Servicer Name Role Phone Eloina Castro COW TRIMMER Primary Care Provider [phone] Allergies No known active allergies Medications [id number] fumarate-FA 28-800 mg-mcg Tablet Take 1 Tablet by mouth daily. 100 Tablet 1 09/24/2016 Active Immunizations Immunization Administration Dates Next Due (M-M-R II/PRIORIX)(12 MO UP) MEASLES, MUMPS AND RUBELLA VIRUS VACCINE, 0.5 ML IM/SUBCUT 07/29/2004,06/10/2000 Dt Dtp Dtap Vaccine 07/29/2004,05/13/2000,1999 HIB, Unspecified Formulation 06/10/2000,03/10/20 00 Hepatitis B Vaccine 07/29/2004,06/10/2000,1998 IPV/OPV 07/29/2004,05/13/2000,03/10/2000 Social History Tobacco Use Types Packs/Day Years Used Date Smoking Tobacco: Never Smokeless Tobacco: Never Alcohol Use Standard Drinks/Week Comments No 0 (1 standard drink = 0.6 oz pur e alcohol) Comments Unknown Sex and Gender Information Value Date Recorded Sex Assigned at Not on file Legal Sex Female 3:27 PM CORPORATE INTERN Gender Identity Not on file Sexual Orientation Not on file Last Filed Vital Signs Vital Sign Reading Time Taken Comments Blood Pressure 112/70 09/24/2016 3:46 PM CDT Pulse 82 09/24/2016 3:46 PM CDT Temperature 36.8 C (98.3 F) 09/24/2016 3:46 PM CDT Respiratory Rate 20 09/24/2016 3:46 PM CDT Oxygen Saturation - - Inhaled Oxygen Concentration - - Weight 54.4 kg (120 lb) 09/24/2016 3:46 PM CDT Height 161.3 cm (5' 3.5 ) 09/24/2016 3:46 PM CDT Body Mass Index 20.92 09/24/2016 3:46 PM CDT Plan of Treatment Health Maintenance Due Date Last Done Comments DTAP/TDAP/TD VACCINES (4 - Tdap) 2010 07/29/2004, 05/13/2000, 03/10/2000 HPV VACCINES (1 - 3-dose series) 2014 CERVICAL CANCER SCREENING 02/17/2020 HPV/Cotest (21-29) 02/17/2020 PAP SMEAR 02/17/2020 INFLUENZA VACCINE (#1) 2024 HEPATITIS B VACCINES Completed 07/29/2004, 06/10/2000, 1999 Care Teams Termite Control Servicer Relationship Specialty Start Date End Date Eloina Castro FNP [address] [place] [address] PCP - General NURSE PRACTITIONER 07/28/15
--- OUTSIDE RECORDS SUMMARY | 2025-01-15 22:36 | XMS_ITS | Encounter Summary ---
Author Organization [facility] Address [address] Attn: [place] [address] Care Team Providers Care Astronomy Teacher Name Role Phone Eloina Castro Primary Care Provider [phone] Encounter Details Date Type Department Care Team (Late st Contact Info) Description 1999 Outpatient Historical Non-Staff, Physician NO ADDRESS ON FILE Social History Tobacco Use Types Packs/Day Years Used Date Smoking Tobacco: Never Assessed Comments Unknown Sex and Gender Information Value Date Recorded Sex Assigned at Not on file Legal Sex Female 4:24 AM CHEMICAL LABORATORY SCIENTIST Gender Identity Not on file Sexual Orientation Not on file documented as of this encounter Plan of Treatment Not on file documented as of this encounter Visit Diagnoses Not on filedocumented in this encounter Care Teams Astronomy Teacher Relationship Specialty Start Date End Date Eloina Castro FNP [address] [place] [address] PCP - General NURSE PRACTITIONER 07/28/15 documented as of this encounter
--- OUTSIDE RECORDS SUMMARY | 2025-01-15 22:36 | XMS_ITS | Encounter Summary ---
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
--- OUTSIDE RECORDS SUMMARY | 2025-01-15 22:36 | XMS_ITS | Encounter Summary ---
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
--- OUTSIDE RECORDS SUMMARY | 2025-01-15 22:36 | XMS_ITS | Clinical Summary ---
Author Organization [facility] Address [address] [address] Phone Care Team Providers Care Smalltalk Developer Name Role Phone Eloina Castro RAMPMAN Primary Care Provider [phone] Allergies No known active allergies Medications [id number] fumarate-FA () 28-800 mg-mcg Tablet Take 1 Tablet by mouth daily. 100 Tablet 1 09/24/2016 Active Active Problems No known active problems Immunizations Immunization Administration Dates Next Due (M-M-R [...] = 0.6 oz pur e alcohol) Comments No Sex and Gender Information Value Date Recorded Sex Assigned at Not on file Legal Sex Female 4:24 AM ROOM SERVICE ATTENDANT Gender Identity Not on file Sexual Orientation Not on file Occupation Industry Job Start Date Job End Date Not on file Not on file Not on file Not on file Not on file Not on file Not on file Not on file Last Filed Vital Signs Vital Sign Reading Time Taken Comments Blood Pressure 112/70 09/24/2016 3:46 PM CDT Pulse 82 09/24/2016 3:46 PM CDT Temperature 36.8 C (98.3 F) 09/24/2016 3:46 PM CDT Respiratory Rate 20 09/24/2016 3:46 PM CDT Oxygen Saturation 98% 09/24/2016 3:46 PM CDT Inhaled Oxygen Concentration - - Weight 54.4 [...] HEPATITIS B VACCINES Completed 07/29/2004, 06/10/2000, [address] [address] [address] [facility] PL[facility] OF [facility] Care Teams Smalltalk Developer Relationship Specialty Start Date End Date Eloina Castro FNP [address] [place] [address] PCP - General NURSE PRACTITIONER 07/28/15
--- OUTSIDE RECORDS SUMMARY | 2025-01-15 22:36 | XMS_ITS | Data Portability ---
Author Organization [facility] Address [address] [place] [address] Assessment No assessment recorded. Plan of Treatment Reminders Order Date Submit Date Provider Last Modified By Organization Details Last Modified Time Details Appointments None recorded. Lab H pylori Ab, serum 2024 025 [facility], [address] [place] [address], [address], 5 12:40:02 CBC w/ diff 2024 025 [facility], [address] [place], [address], 5 16:53:24 CMP, serum or plasma 2024 025 [facility], [address] [place], [address], 5 16:53:28 amylase, QN, blood 2024 025 [facility], [address] [place], [address], 5 16:53:25 lipase, serum or plasma 2024 025 [facility], [address] [place], [address], 5 16:53:26 urinalysis panel, auto [email or web address], [address] [place] [address], [address], 5 12:23:52 genetic screen, unspecified specimen 2024 025 [email or web address] [facility], [address], [address], 5 14:19:58 drug screen, urine 2023 024 [email or web address] [facility], [address] [place] [address], [address], 4 18:28:37 Referral obstetricia n and gynecologis t referral - [place] [email or web address], [address] [place], [address], 5 16:31:19 counseling referral - Not Laurence 2023 024 [email or web address] Not available 5 09:34:00 Procedures None recorded. Surgeries None recorded. Imaging US, abdomen, complete - Can you schedule next Thursday, June 10, 2024? Call with questions/c oncerns.fax :[phone] Belle Polk LPN/Case Management [email or web address] [facility] [address] [facility], [address] [place], [address], 5 14:17:56 Medication Orders omeprazole 20 mg capsule,del ayed release 2024 025 [email or web address] [facility] [place], [address], [place], [address], 5 15:54:27 fluoxetine 20 mg capsule 2023 025 [facility] [place], [address] [place], [address], 5 12:02:01 hydroxyzine HCl 25 mg tablet 2023 025 [place], [address] [place], [address], 5 12:02:01 Augmentin 875 mg-125 mg tablet 2022 024 [facility] [place], [address] [place], [address], 15:51:14 Patient TargetsNo targets recorded. Patient Instructions Encounter Date Encounter Id Patient Instructions Last Modified By Organization Details Last Modified Time 01/14/2024 [id number] heart-healthy diet: care instructions Not available 01/14/2024 16:01:48 walking for exercise: care instructions Not available 01/14/2024 16:01:48 03/14/2024 [id number] heart-healthy diet: care instructions Not available 03/14/2024 15:36:29 walking for exercise: care instructions Not available 03/14/2024 15:36:29 05/30/2024 [id number] heart-healthy diet: care instructions Not available 05/30/2024 15:54:27 walking for exercise: care instructions Not available 05/30/2024 15:54:27 Reason for Referral Counseling Referral for Depr essive disorder Not Laurence Referring Physician: [facility], Encounter Date: 03/14/2024 [facility] Gynecologis t Referral for [place] Referring Physician: [facility], Encounter Date: 05/30/2024 Results Created Date Observation Date Name Description Value Unit Range Abnormal Flag Note LastModifiedBy Organization Detail LastModifiedTime 12/10/1912/10/2023 drug scree n, urine THC negati ve Not Available [address] [place], [address], 12/10/2023 11:59:45 12/10/19 24 12/10/2023 drug scree n, urine DILEEP negati ve Not Available [address] [place], [address], 12/10/2023 11:59:45 12/10/19 24 12/10/2023 drug scree n, urine OPI negati ve Not Available [address] [place], [address], 12/10/2023 11:59:45 12/10/19 24 12/10/2023 drug scree n, urine MET negati ve Not Available [address] [place], [address], 12/10/2023 11:59:45 12/10/1912/10/2023 drug scree n, urine AMP negati ve Not Available [address] [place], [address], 12/10/2023 11:59:45 12/10/19 24 12/10/2023 drug scree n, urine BZO negati ve Not Available [address] [place], [address], 12/10/2023 11:59:45 12/10/19 24 12/10/2023 drug scree n, urine BAR negati ve Not Available [address] [place], [address], 12/10/2023 11:59:45 12/10/19 24 12/10/2023 drug scree n, urine MTD negati ve Not Available [address] [place], [address], 12/10/2023 11:59:45 12/10/19 24 12/10/2023 drug scree n, urine BUPG negati ve Not Available [address] [place], [address], 12/10/2023 11:59:45 12/10/19 24 12/10/2023 drug scree n, urine TCA negati ve Not Available [address] [place], [address], 12/10/2023 11:59:45 12/10/19 24 12/10/2023 drug scree n, urine MDMA negati ve Not Available [address], [address], 12/10/2023 11:59:45 12/10/19 24 12/10/2023 drug scree n, urine OXY negati ve Not Available [address] [place], [address], 12/10/2023 11:59:45 12/10/19 24 12/10/2023 drug scree n, urine PCP negati ve Not Available [address], [address], 12/10/2023 11:59:45 12/10/19 24 12/10/2023 drug scree n, urine PPX negati ve Not Available [address] [place], [address], 12/10/2023 11:59:45 05/30/19 25 05/30/2024 CBC WBC 7.9 x10(3 )/uL 3.1 - 10.3 Not Available [facility] [address] [place], [address], 05/30/2024 16:53:24 05/30/19 25 05/30/2024 CBC RBC 4.70 x10(6 )/uL 3.20 - 4.60 high Not Available [facility] [address] [place], [address], 05/30/2024 16:53:24 05/30/19 25 05/30/2024 CBC HGB 13.1 g/dL 9.9 - 13.6 Not Available [facility] [address] [place], [address], 05/30/2024 16:53:24 05/30/19 25 05/30/2024 CBC HCT 38.6 % 30.2 - 42.3 Not Available [facility] [address], [place], [address], 05/30/2024 16:53:24 05/30/19 25 05/30/2024 CBC MCV 82.1 fL 78.6 - 102.2 Not Available [facility] [address] [place], [address], 05/30/2024 16:53:24 05/30/19 25 05/30/2024 CBC MCH 27.9 pg 25.2 - 34.7 Not Available [facility] [address], [place], [address], 05/30/2024 16:53:24 05/30/19 25 05/30/2024 CBC MCHC 33.9 g/dL 31.3 - 35.4 Not Available [facility] [address], [place], [address], 05/30/2024 16:53:24 05/30/19 25 05/30/2024 CBC platelet count 189 x10(3 )/uL 128 - 434 Not Available [facility] [address] [place], [address], 05/30/2024 16:53:24 05/30/19 25 05/30/2024 CBC neut% 79.0 % 43.7 - 77.1 high Not Available [facility] [address] [place], [address], 05/30/2024 16:53:24 05/30/19 25 05/30/2024 CBC lymph% 14.9 % 15.0 - 45.8 low Not Available [facility] [address] [place], [address], 05/30/2024 16:53:24 05/30/19 25 05/30/2024 CBC mxd% 6.1 % 1.3 - 25.9 Not Available [facility] [address] [place], [address], 05/30/2024 16:53:24 05/30/19 25 05/30/2024 CBC neut# 6.2 x10(3 )/uL 1.6 - 6.9 Not Available [facility] [address] [place], [address], 05/30/2024 16:53:24 05/30/19 25 05/30/2024 CBC lymph# 1.2 x10(3 )/uL 0.9 - 2.8 Not Available [facility] [address] [place], [address], 05/30/2024 16:53:24 05/30/19 25 05/30/2024 CBC mxd# 0.5 x10(3 )/uL 0.1 - 1.6 Not Available [facility] [address] [place], [address], 05/30/2024 16:53:24 05/30/19 25 05/30/2024 CBC RDW-SD 41.2 fL 35.3 - 48.9 Not Available [facility] [address] [place], [address], 05/30/2024 16:53:24 05/30/19 25 05/30/2024 CBC RDW-CV 12.9 % 10.6 - 15.7 Not Available [facility] [address] [place], [address], 05/30/2024 16:53:24 05/30/19 25 05/30/2024 CBC MPV 11.2 fL 8.5 - 12.4 Not Available [facility] [address] [place], [address], 05/30/2024 16:53:24 05/30/19 25 05/30/2024 AMYLA SE amylase 55 U/L 30 - 110 Not Available [facility] [address] [place], [address], 05/30/2024 16:53:25 05/30/19 25 05/30/2024 LIPAS E lipase 83 U/L 23 - 300 Not Available [facility] [address] [place], [address], 05/30/2024 16:53:26 05/30/19 25 05/30/2024 COMPR EHENS YARY METAB OLIC PANEL (CMP) albumin 4.4 g/dL 3.5 - 5.0 Not Available [facility] [address] [place], [address], 05/30/2024 16:53:27 05/30/19 25 05/30/2024 COMPR EHENS YARY METAB OLIC PANEL (CMP) chloride 104 mmol/ L 98 - 107 Not Available [facility] [address] [place], [address], 05/30/2024 16:53:27 05/30/19 25 05/30/2024 COMPR EHENS YARY METAB OLIC PANEL (CMP) creatinine 0.49 mg/dL 0.52 - 1.04 low Not Available [facility] [address] [place], [address], 05/30/2024 16:53:27 05/30/19 25 05/30/2024 COMPR EHENS YARY METAB OLIC PANEL (CMP) eco2 21 mmol/ L 22 - 30 low Not Available [facility] [address] [place], [address], 05/30/2024 16:53:27 05/30/19 25 05/30/2024 COMPR EHENS YARY METAB OLIC PANEL (CMP) glucose 90 mg/dL 74 - 106 Not Available [facility] [address] [place], [address], 05/30/2024 16:53:27 05/30/19 25 05/30/2024 COMPR EHENS YARY METAB OLIC PANEL (CMP) potassium 4.00 mmol/ L 3.50 - 5.10 Not Available [facility] [address] [place], [address], 05/30/2024 16:53:27 05/30/19 25 05/30/2024 COMPR EHENS YARY METAB OLIC PANEL (CMP) alkaline phos 63 U/L 38 - 126 Not Available [facility] [address] [place], [address], 05/30/2024 16:53:27 05/30/19 25 05/30/2024 COMPR EHENS YARY METAB OLIC PANEL (CMP) sodium 136 mmol/ L 137 - 145 low Not Available [facility] [address] [place], [address], 05/30/2024 16:53:27 05/30/19 25 05/30/2024 COMPR EHENS YARY METAB OLIC PANEL (CMP) total bilirubin 1.2 mg/dL 0.2 - 1.3 Not Available [facility] [address] [place], [address], 05/30/2024 16:53:27 05/30/19 25 05/30/2024 COMPR EHENS YARY METAB OLIC PANEL (CMP) total protein 7.3 g/dL 6.3 - 8.2 Not Available [facility] [address] [place], [address], 05/30/2024 16:53:27 05/30/19 25 05/30/2024 COMPR EHENS YARY METAB OLIC PANEL (CMP) ALT 21 U/L 0 - 35 Not Available [facility] [address] [place], [address], 05/30/2024 16:53:27 05/30/19 25 05/30/2024 COMPR EHENS YARY METAB OLIC PANEL (CMP) BUN/urea 10 mg/dL 7 - 17 Not Available [facility] [address] [place], [address], 05/30/2024 16:53:27 05/30/19 25 05/30/2024 COMPR EHENS YARY METAB OLIC PANEL (CMP) eGFR 134 mL/mi n/1.7 3m2 >60 *eGFR Refer ence Value s Carissa l: >60 mL/mi n/1.7 3m2 Abnor mal: < 60 mL/mi n/1.7 3m2 Not Available [facility] [address] [place], [address], 05/30/2024 16:53:27 05/30/19 25 05/30/2024 COMPR EHENS YARY METAB OLIC PANEL (CMP) A/G ratio 1.5 (calc ) 1.0 - 2.5 Not Available [facility] [address] [place], [address], 05/30/2024 16:53:27 05/30/19 25 05/30/2024 COMPR EHENS YARY METAB OLIC PANEL (CMP) globulin 2.9 g/dL_ (calc ) 1.9 - 3.7 Not Available [facility] [address] [place], [address], 05/30/2024 16:53:27 05/30/19 25 05/30/2024 COMPR EHENS YARY METAB OLIC PANEL (CMP) calcium 9.7 mg/dL 8.4 - 10.2 Not Available [facility] [address] [place], [address], 05/30/2024 16:53:27 05/30/19 25 05/30/2024 COMPR EHENS YARY METAB OLIC PANEL (CMP) AST 22 U/L 14 - 36 Not Available [facility] [address] [place], [address], 05/30/2024 16:53:27 05/30/19 25 05/30/2024 URINE -ID EXTEN DED hsv2 Not Detect ed Not Available [facility] [address], [address], 06/03/2024 05:56:10 05/30/19 25 05/30/2024 URINE -ID EXTEN DED hsv1 Not Detect ed Not Available [facility] [address], [address], 06/03/2024 05:56:10 05/30/19 25 05/30/2024 URINE -ID EXTEN DED treponema pallidum (syphilis) Not Detect ed Not Available [facility] [address] [place] [address], [address], 06/03/2024 05:56:10 05/30/19 25 05/30/2024 URINE -ID EXTEN DED gardnerella vaginalis Not Detect ed Not Available [facility] [address] [place] [address], [address], 06/03/2024 05:56:10 05/30/19 25 05/30/2024 URINE -ID EXTEN DED haemophilus ducreyi Not Detect ed Not Available [facility] [address] [place] [address], [address], 06/03/2024 05:56:10 05/30/19 25 05/30/2024 URINE -ID EXTEN DED HPV 16 Not Detect ed Not Available [facility] [address] [place] [address], [address], 06/03/2024 05:56:10 05/30/19 25 05/30/2024 URINE -ID EXTEN DED trichomonas vaginalis Not Detect ed Not Available [facility] [address] [place] [address], [address], 06/03/2024 05:56:10 05/30/19 25 05/30/2024 URINE -ID EXTEN DED chlamydia trachomatis Not Detect ed Not Available [facility] [address] [place] [address], [address], 06/03/2024 05:56:10 05/30/19 25 05/30/2024 URINE -ID EXTEN DED HPV 18 Not Detect ed Not Available [facility] [address] [place] [address], [address], 06/03/2024 05:56:10 05/30/19 25 05/30/2024 URINE -ID EXTEN DED mycoplasma genitalium Not Detect ed Not Available [facility] [address] [place] [address], [address], 06/03/2024 05:56:10 05/30/19 25 05/30/2024 URINE -ID EXTEN DED HPV 11 Not Detect ed Not Available [facility] [address] [place] [address], [address], 06/03/2024 05:56:10 05/30/19 25 05/30/2024 URINE -ID EXTEN DED neisseria gonorrhoeae Not Detect ed Not Available [facility] [address] [place] [address], [address], 06/03/2024 05:56:10 05/30/19 25 05/30/2024 URINE -ID EXTEN DED HPV 6 Not Detect ed Not Available [facility] [address] [place] [address], [address], 06/03/2024 05:56:10 05/30/19 25 05/30/2024 URINE -ID EXTEN DED ureaplasma urealyticum Not Detect ed Not Available [facility] [address] [place] [address], [address], 06/03/2024 05:56:10 05/30/19 25 05/30/2024 URINE -ID EXTEN DED mycoplasma hominis Not Detect ed Not Available [facility] [address] [place] [address], [address], 06/03/2024 05:56:10 05/30/19 25 05/30/2024 URINE -ID EXTEN DED ureaplasma parvum Not Detect ed Not Available [facility] [address] [place] [address], [address], 06/03/2024 05:56:10 05/30/19 25 05/30/2024 URINE -ID EXTEN DED proteus mirabilis, vulgaris Not Detect ed Not Available [facility] [address] [place] [address], [address], 06/03/2024 05:56:10 05/30/19 25 05/30/2024 URINE -ID EXTEN DED kaya parapsilosis Not Detect ed Not Available [facility] [address] [place] [address], [address], 06/03/2024 05:56:10 05/30/19 25 05/30/2024 URINE -ID EXTEN DED kaya tropicalis Not Detect ed Not Available [facility] [address] [place] [address], [address], 06/03/2024 05:56:10 05/30/19 25 05/30/2024 URINE -ID EXTEN DED actinobaculu m schaalii Not Detect ed Not Available [facility] [address] [place] [address], [address], 06/03/2024 05:56:10 05/30/19 25 05/30/2024 URINE -ID EXTEN DED kaya albicans Not Detect ed Not Available [facility] [address] [place] [address], [address], 06/03/2024 05:56:10 05/30/19 25 05/30/2024 URINE -ID EXTEN DED kaya glabrata Not Detect ed Not Available [facility] [address] [place] [address], [address], 06/03/2024 05:56:10 05/30/19 25 05/30/2024 URINE -ID EXTEN DED serratia marcescens Not Detect ed Not Available [facility] [address] [place] [address], [address], 06/03/2024 05:56:10 05/30/19 25 05/30/2024 URINE -ID EXTEN DED escherichia coli Not Detect ed Not Available [facility] [address] [place] [address], [address], 06/03/2024 05:56:10 05/30/19 25 05/30/2024 URINE -ID EXTEN DED klebsiella oxytoca, pneumoniae Not Detect ed Not Available [facility] [address] [place] [address], [address], 06/03/2024 05:56:10 05/30/19 25 05/30/2024 URINE -ID EXTEN DED kaya krusei Not Detect ed Not Available [facility] [address] [place] [address], [address], 06/03/2024 05:56:10 05/30/19 25 05/30/2024 URINE -ID EXTEN DED enterococcus faecalis Not Detect ed Not Available [facility] [address] [place] [address], [address], 06/03/2024 05:56:10 05/30/19 25 05/30/2024 URINE -ID EXTEN DED enterococcus faecium Not Detect ed Not Available [facility] [address] [place] [address], [address], 06/03/2024 05:56:10 05/30/19 25 05/30/2024 URINE -ID EXTEN DED citrobacter freundii Not Detect ed Not Available [facility] [address] [place] [address], [address], 06/03/2024 05:56:10 05/30/19 25 05/30/2024 URINE -ID EXTEN DED staphylococc us aureus Not Detect ed Not Available [facility] [address] [place] [address], [address], 06/03/2024 05:56:10 05/30/19 25 05/30/2024 URINE -ID EXTEN DED enterobacter aerogenes, cloacae Not Detect ed Not Available [facility] [address] [place] [address], [address], 06/03/2024 05:56:10 05/30/19 25 05/30/2024 URINE -ID EXTEN DED staphylococc us saprophyticu s Not Detect ed Not Available [facility] [address] [place] [address], [address], 06/03/2024 05:56:10 05/30/19 25 05/30/2024 URINE -ID EXTEN DED streptococcu s agalactiae Not Detect ed Not Available [facility] [address] [place] [address], [address], 06/03/2024 05:56:10 05/30/19 25 05/30/2024 URINE -ID EXTEN DED acinetobacte r baumannii Not Detect ed Not Available [facility] [address] [place] [address], [address], 06/03/2024 05:56:10 05/30/19 25 05/30/2024 URINE -ID EXTEN DED providencia stuartii Not Detect ed Not Available [facility] [address] [place] [address], [address], 06/03/2024 05:56:10 05/30/19 25 05/30/2024 URINE -ID EXTEN DED pseudomonas aeruginosa Not Detect ed Not Available [facility] [address] [place] [address], [address], 06/03/2024 05:56:10 05/30/19 25 05/30/2024 URINE -ID EXTEN DED morganella morganii Not Detect ed Not Available [facility] [address] [place] [address], [address], 06/03/2024 05:56:10 05/30/19 25 05/30/2024 H pylor i Ab, serum H. Pylori AB negati ve Not Available [address], [address], 05/30/2024 12:08:07 05/30/19 25 05/30/2024 urina lysis panel , auto glucose NEGATI VE normal Not Available [address], [address], 05/30/2024 12:09:37 05/30/19 25 05/30/2024 urina lysis panel , auto bilirubin NEGATI VE normal Not Available [address], [address], 05/30/2024 12:09:37 05/30/19 25 05/30/2024 urina lysis panel , auto ketone 2+ abnormal Not Available [address], [address], 05/30/2024 12:09:37 05/30/19 25 05/30/2024 urina lysis panel , auto specific gravity 1.020 normal Not Available [address], [address], 05/30/2024 12:09:37 05/30/19 25 05/30/2024 urina lysis panel , auto blood TRACE- INTACT abnormal Not Available [address], [address], 05/30/2024 12:09:37 05/30/19 25 05/30/2024 urina lysis panel , auto pH 7.0 normal Not Available [address], [address], 05/30/2024 12:09:37 05/30/19 25 05/30/2024 urina lysis panel , auto protein TRACE abnormal Not Available [address], [address], 05/30/2024 12:09:37 05/30/19 25 05/30/2024 urina lysis panel , auto urobilinogen 1.0 E.U./ dL normal Not Available [address], [address], 05/30/2024 12:09:37 05/30/19 25 05/30/2024 urina lysis panel , auto nitrite NEGATI VE normal Not Available [facility] [address] [place], [address], 05/30/2024 12:09:37 05/30/19 25 05/30/2024 urina lysis panel , auto leukocytes TRACE abnormal Not Available [facility] [address] [place] [address], [address], 05/30/2024 12:09:37 05/30/19 25 05/30/2024 urina lysis panel , auto color NOT ENTERE D normal Not Available [facility] [address] [place] [address], [address], 05/30/2024 12:09:37 05/30/19 25 05/30/2024 urina lysis panel , auto clarity NOT ENTERE D normal Not Available [address], [address], 05/30/2024 12:09:37 Result Notes None recorded. Problems Name Problem SNOMED Code Status Onset Date Resolution Date Notes Provider Name and Address Organization Details Recorded Time No current problems or disabili ty 013054161 Active [facility] 12:25:27 Pain of joint of wrist 129383319 Completed 201403/20/2016 Created By: ELOINA POTTER; Modified By: ELOINA POTTER; Category: DD; Examiner: Eloina Potter; Medicine Descripti on: joint pain, localized in the wrist; Display in Medcin: YES; Display in ESB: YES; Confident iality Level: Level 1; Type: Diagnosis Jenn[facility]ILA [facility] 6 12:24:09 Initial prescrip tion of oral contrace ption Completed 201503/20/2016 Created By: MARIVEL FRANCO; Modified By: AMRIVEL FRANCO; Category: DD; Examiner: Marivel Franco; Medicine Descripti on: Gynecolog ic Services Prescript ion Of Contracep tive Pills; Display in Medcin: YES; Display in ESB: YES; Confident iality Level: Level 1; Type: Diagnosis ANILA Leary, [facility] 6 12:24:16 Epistaxi s Completed 201503/20/2016 Created By: ELOINA POTTER; Modified By: ELOINA POTTER; Category: DD; Examiner: Eloina Potter; Medicine Descripti on: nosebleed s (epistaxi s); Display in Medcin: YES; Display in ESB: YES; Confident iality Level: Level 1; Type: Diagnosis ANILA Leary [facility] 6 12:24:05 Problem Notes None recorded. Medical Equipment None Reported. Allergies No known drug allergies Medications Name Sig Start Date Stop Date Status Note LastModified by Organization Details LastModified Time Zithromax Z-Kenny 250 mg tablet TAKE 2 TABLETS (500 MG) BY ORAL ROUTE ONCE DAILY FOR 1 DAY THEN 1 TABLET (250 MG) BY ORAL ROUTE ONCE DAILY FOR 4 DAYS 10/21 completed Not Available Not Available Not Available cephalexin 500 mg capsule TAKE 1 CAPSULE BY MOUTH 3 TIMES DAILY FOR 10 DAYS 03/05 completed Not Available Not Available Not Available Elimite 5 % topical cream APPLY (THOROUGH LY MASSAGE INTO SKIN FROM HEAD TO SOLES OF FEET) BY TOPICAL ROUTE ONCE LEAVE ON FOR 8-14 HR, THEN REMOVE BY THOROUGH WASHING 05/07 completed Not Available Not Available Not Available omeprazole 20 mg capsule,del ayed release TAKE 1 CAPSULE BY MOUTH EVERY DAY active Not Available Not Available No t Available hydroxyzine HCl 25 mg tablet Take 1 tablet 3 times a day by oral route as needed. 05/30 completed Not Available Not Available Not Available albuterol sulfate HFA 90 mcg/actuati on aerosol inhaler Inhale 2 puffs every 4-6 hours by inhalatio n route as needed. 03/05 completed Not Available Not Available Not Available fluoxetine 20 mg capsule Take 1 capsule every day by oral route. 05/30 completed Not Available Not Available Not Available amoxicillin 875 mg-radha santos clavulanate 125 mg tablet TAKE 1 TABLET BY MOUTH TWICE DAILY 01/13 completed Not Available Not Available Not Available Vitals Date Recorded Body height Body weight Body temperature Heart rate Oxygen saturation Oxygen saturation in Arterial blood by Pulse oximetry Respiratory rate Systolic And Diastolic Provider Name and Address Organization Details Last Updated DateTime 5 167.64 cm 01313.0 5 g 99 [degF] 96 /min 99 % 99 % 18 /min 104/78 mm[Hg] [facility] 5 11:58:01 Date Recorded Body mass index (BMI) Provider Name and Address Organization Details Last Updated DateTime 05/30/2024 23.3 kg/m2 Cristal [facility] 05/30/2024 11:59:14 Date Recorded Body height Body mass index (BMI) Body weight Body temperature Heart rate Oxygen saturation Oxygen saturation in Arterial blood by Pulse oximetry Respiratory rate Systolic And Diastolic Provider Name and Address Organization Details Last Updated DateTime 4 167.64 cm 24.7 kg/m2 00476.6 8 g 98.7 [degF] 104 /min 100 % 100 % 18 /min 116/68 mm[Hg] [facility] 4 15:44:47 Date Recorded Body height Body mass index (BMI) Body weight Body temperature Heart rate Oxygen saturation Oxygen saturation in Arterial blood by Pulse oximetry Respiratory rate Systolic And Diastolic Provider Name and Address Organization Details Last Updated DateTime 3 167.64 cm 23.5 kg/m2 54434.6 9 g 96.1 [degF] 81 /min 100 % 100 % 16 /min 131/85 mm[Hg] Izabel Morris [facility] 3 10:38:17 Date Recorded Body height Body mass index (BMI) Body weight Body temperature Heart rate Oxygen saturation Oxygen saturation in Arterial blood by Pulse oximetry Respiratory rate Systolic And Diastolic Provider Name and Address Organization Details Last Updated DateTime 4 167.64 cm 24.6 kg/m2 71242.8 4 g 98.8 [degF] 91 /min 100 % 100 % 16 /min 130/90 mm[Hg] Izabel Morris [facility] 4 12:20:14 Social History Question Answer Notes LastModified by Organizat ion Details LastModified Time Tobacco Smoking Status Never Smoker Jenniffer Rodrigez LPN ben [facility] 03/20/2016 12:26:30 Do You Have An Advance Directive? No Information not available 10/21/2018 What Is Your Level Of Caffeine Consumption? Moderate Information not available 10/21/2018 How Much Tobacco Do You Chew? None Information not available 10/21/2018 Commercial Sex Work No Information not available 10/21/2018 What Type Of Diet Are You Following? REGULAR Information not available 10/21/2018 Which Illicit Or Recreational Drugs Have You Used? None Information not available 10/21/2018 Education 12 Information no t available 10/21/2018 Are There Any Guns Present In Your Home? Yes Information not available 10/21/2018 Hard Of Hearing Or Deaf In One Or Both Ears? No Information not available 10/21/2018 High Number Of Sexual Partners No Information not available 10/21/2018 History Of Inconsistent/no Condom Use No Information not available 10/21/2018 International Travel None Information not available 10/21/2018 Legally Blind In One Or Both Eyes? No Information no t available 10/21/2018 In The Past 6 Months Have You Fallen No Information not available 10/21/2018 Sexual Orientation Straight Or Heterosexual Information not available 10/21/2018 Gender Identity Female Informati on not available 10/21/2018 Do You Feel Safe Yes Informat ion not available 10/21/2018 Marital Status Single Informatio n not available 10/21/2018 What Was The Date Of Your Most Recent Tobacco Screening? 05/30/2024 [email or web address] Information not available 05/30/2024 Mother With HIV? No Informat ion not available 10/21/2018 Seat Belts Used Routinely Yes Information not available 10/21/2018 Are You Sexually Active? Yes Information not available 10/21/2018 Sexual Partner Has HIV? No Information not available 10/21/2018 Sexual Partner Uses IV Drugs? No Information not available 10/21/2018 Smoke Alarm In Home Yes Information not available 10/21/2018 General Stress Level Medium Information not available 10/21/2018 Do You Use Sunscreen Routinely? Yes Information not available 10/21/2018 Have You Used IV Drugs? No Information not available 10/21/2018 Sex: Female Functional Status Question Answer Note LastModified by Organizat ion Details LastModified Time What is your level of alcohol consumption? None Information not available 10/21/2018 Are you able to walk independently without assistance or assistive devices? YESWOREST Information not available 10/21/2018 What is your occupation? homemaker Information not available 10/21/2018 What is your exercise level? Moderate Information not available 10/21/2018 Mental Status None recorded. Family History Relationship Description Onset Age of this Age Resolved Age Notes LastModified by Organization Details LastModified Time Unspecified Relation Malignant neoplastic disease Not available 2015 12:25:50 Unspecified Relation Diabetes mellitus Not available 2015 12:26:08 Father No current problems or disability Not available 10/21 16:29:52 Mother No current problems or disability Not available 10/21 16:29:52 Medical History Condition Response Muscle, Joint, or Bone Problems Y Gynecological History Statement/Question Response Flow Moderate Current Control Method Condoms Date of LMP 08/19/2018 Sexually Active? Y Obstetrics History GPAL:G 2 P 1 0 0 0 Type Value Full Term 1 Total 2 Immunizations Vaccine Type Date Status Note Provider Nam e and Address Organization Details Recorded Time IPV 1 completed Radha contreras [facility] 01/14/2024 15:45:00 IPV 5 completed Radha contreras [facility] 01/14/2024 15:45:00 [facility] 15[facility]45:00 MMR 1 completed Radha Jackson null, [facility] 01/14/2024 15:45:00 MMR 5 completed Radha Jackson null, [facility] 01/14/2024 15:45:00 Tdap 8 completed Radha Jackson null, [facility] 01/14/2024 15:45:00 Tdap 3 completed Radha Jackson null, [facility] 01/14/2024 15:45:00 Hep B, unspecified formulation 1 completed Radha Jackson null, [facility] 01/14/2024 15:45:00 Hep B, unspecified formulation 9 completed Radha Jackson [facility], [facility] 01/14/2024 15:45:00 influenza, split (incl. purified surface antigen) 9 completed Radha Jackson null, [facility] 01/14/2024 15:45:00 Hib (PRP-T) 1 completed Radha Jackson [facility], [facility] 01/14/2024 15:45:00 Hib (PRP-T) 0 completed Radha Jackson null, [facility] 01/14/2024 15:45:00 meningococcal MCV4P 7 completed Radha Jackson null, [facility] 01/14/2024 15:45:00 DTaP 1 completed Radha Jackson null, [facility] 01/14/2024 15:45:00 DTaP 5 completed Radha Jackson null, [facility] 01/14/2024 15:45:00 DTaP 0 completed Radha Jackson null, [facility] 01/14/2024 15:45:00 DTaP-Hep B-IPV 5 completed Radha Baumannretwendy contreras, [place] - [facility] 01/14/2024 15:45:00 Influenza, split virus, quadrivalent, PF 7 completed Radha Baumannrett ben, [place] - [facility] 01/14/2024 15:45:00 Past Encounters Encounter ID Performer Location Encounter Start Date Encounter Closed Date Diagnosis/Indication Diagnosis SNOMED-CT Code Diagnosis ICD10 Code Diagnosis IMO Codes Diagnosis Note [id number] Em Alston MD [facility] [address] [place] [address] 03/20/2016 12:04:14 03/21/2016 18:07:39 Infestation by Sarcoptes scabiei jn hominis [id number] B86 [id number] Em Alston MD [facility] [address] [place] [address] 05/07/2016 11:53:09 05/07/2016 14:55:07 Fever 114540744 R50.9 Acute bronchitis 2208722 2 J20.9 [id number] Deacon Cali DO [facility] [address] [place] [address] 10/21/2018 16:22:48 10/21/2018 17:23:55 Missed period 71167140 N92.5 [id number] SABRINA SALAZAR DO [facility] [address] [place] [address] 07/08/2022 15:05:28 07/08/2022 15:53:34 Ingrowing nail of toe of left foot 6072046962 2715758 L60.0 Recommende d to use warm epsom salts, continue triple antibiotic ointment as needed, course of antibiotic s given. If not improving discussed she will need to have the toe nail removed. Pt voiced understand ing. [id number] SABRINA SALAZAR DO [facility] [address] [place] [address] 03/05/2023 10:23:23 03/06/2023 14:51:39 Acute bilateral otitis media 814255428 H66.93 prescribed augmentin for infection and if no improvemen t follow up with providerMa y take Tylenol or Ibuprofen for ear pain or fever as needed. Take entire course of antibiotic s. Increase fluids by mouth, may use humidifier for nasal congestion . Seek care if symptoms worsen or do not improve within 48 hours, otherwise follow up as needed. Body mass index 20-24 - normal 590700359 Z68.23 BMI is 23.5 [id number] SABRINA SALAZAR [address] [address] 12/10/2023 11:47:15 12/14/2023 08:34:53 History and physical examination, pre-employment 920848353 Z02.1 [id number] SABRINA SALAZAR [address] [address] 01/14/2024 15:17:04 01/18/2024 17:43:48 History and physical examination, pre-employment 291479921 Z02.1 Body mass index 20-24 - normal 440292642 Z68.23 BMI 24.7 Diet education 99766016 Z71.3 Exercises education, guidance, and counseling 543559977 Z71.82 Influenza vaccination declined 878523363 Z28.21 [id number] Ronald Roca [address] [address] 03/14/2024 12:10:39 03/17/2024 11:33:59 Body mass index 20-24 - normal 605605596 Z68.23 BMI 24.6 Diet education 23932552 Z71.3 Exercises education, guidance, and counseling 218084926 Z71.82 Depressive disorder 6568 9007 F32.A PHQ 11 JOESPH 8 Will start fluoxetine 20 mg daily.Disc ussed SSRI treatment, action, and side effects. May take 4-6 weeks before symptoms improve.Fo llow up x1 month or sooner if needed. [id number] SABRINA SALAZAR [address] [address] 05/30/2024 11:40:51 05/30/2024 13:44:50 Body mass index 20-24 - normal 961504457 Z68.23 BMI 23.3 Diet education 31609372 Z71.3 Exercises education, guidance, and counseling 656288325 Z71.82 Abdominal pain 42535117 R10.9 H.Pylori is negative; She had had 8 lb weight loss in the past week.UA showed trace of blood, 2+ketones and trace of leukocytes . Will send out for culture.oRdy elliott obtained and will contact patient once results are reviewed. 84473963 Z33.1 Contacted patient to ask her to return for more urine for UPT-Pt reported while on phone that she had a home test that was postive and thinks she is around 7 weeks 3 days . Health Concerns Section Related Observation LastModified by Organization Detai ls LastModified Time None Recorded Concern Status LastModified by Organization Details LastModified Time None Recorded Advance Directives Directive N: Payers Insurance Date Sequence Insurance Name Policy Number Policy Gibson Covered Member ID Gibson Member ID Guarantor Name 05/30/2024 1 [facility] (MEDICAID HMO) Ashley Gardiner [id number] Ashley Gardiner 05/30/2024 1 [place] Ashley Gardiner [id number] Ashley Gardiner 05/30/2024 1 [facility] (MEDICAID REPLACEMENT - HMO) SAMEERA Gardiner [id number] Ashley Gardiner 01/14/2024 SLIDING FEE SCHEDULE - DISCOUNT Ashley Gardiner 01/14/2024 1 *SELF PAY* Da indu Gardiner 01/14/2024 SLIDING FEE SCHEDULE - DISCOUNT Ashley Gardiner 05/30/2024 [facility] Ashley Gardiner [id number] Ashley Gardiner 05/30/2024 2 [facility] [employer] (MEDICAID REPLACEMENT - HMO) SAMEERA Gardiner [id number] Ashley Gardiner 05/30/2024 1 [employer] [place] - [place] [id number] Ashley Gardiner [id number] Ashley Gardiner 06/06/2024 1 [employer] [place] [id number] Ashley Gardiner [id number] Ashley J Abdifatah Notes Date Note Type Note Provider Name and Address Organization Details Recorded Time 03/05/2023 text/html Pt here for possible ear infection, complaining of not being able to hear and leaking, pt states no fever and states she feels like there is something in her L ear and had thick green drainage but not now, the R ear is hurting and throbbing, pt states she woke up today with sinus issues and blowing her nose....pt states it started in the left ear Thursday and moved the right ear Jacquelin Kent NP [address], [address], [facility] 03/05/2023 14:40:30 01/14/2024 text/html Patient is here for pre employment physical. She has had her tb skin test. She has no health problems. Her last tdap was in 2018. She has no complaints and is feeling well. Jacquelin Kent NP [address], [address], [facility] 01/14/2024 16:09:21 03/14/2024 text/html Patient complains of depression for two weeks. She denies SI. Trouble sleeping at night.Her and boyfriend of 8 years recently broke up. Jacquelin Kent NP [address], [address], [facility] 03/14/2024 18:35:31 05/30/2024 text/html Patient presents with complaints of stomach pain, no appetite and is nauseous. It hurts from her belly button up in her epigastric area. No abdominal tenderness. She states she hasn't been able to eat anything in three days. She states it gets worse when she does eat. Denies dysuria. Denies trouble with bowel movement. She is approximately 7-1/2 weeks . Jacquelin Kent NP [address], [address], [facility] 05/30/2024 16:21:08 OBGyn Episode No OBEpisode recorded.
--- OUTSIDE RECORDS SUMMARY | 2025-01-15 22:36 | XMS_ITS | Encounter Summary ---
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
--- OUTSIDE RECORDS SUMMARY | 2025-01-15 22:36 | XMS_ITS | Encounter Summary ---
Author Organization [facility] Address [address] [facility] Attn: [place] [address] Care Team Providers Care Supervisor Air Conditioning Installer Name Role Phone Eloina Castro Primary Care Provider [phone] Encounter Details Date Type Department Care Team (Late st Contact Info) Description 05/01/2000 Outpatient Historical Non-Staff, Physician NO ADDRESS ON FILE Social History Tobacco Use Types Packs/Day Years Used Date Smoking Tobacco: Never Assessed Comments Unknown Sex and Gender Information Value Date Recorded Sex Assigned at Not on file 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
--- OUTSIDE RECORDS SUMMARY | 2025-01-15 22:36 | XMS_ITS | Encounter Summary ---
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
--- OUTSIDE RECORDS SUMMARY | 2025-01-15 22:37 | XMS_ITS | Encounter Summary ---
Author Organization [facility] Address [address] [facility] Attn: [place] [id number] Care Team Providers Care Geriatric Social Work Professor Name Role Phone Eloina Castro Primary Care Provider [phone] Encounter Details Date Type Department Care Team (Late st Contact Info) Description 1999 Inpatient Historical Jae Mccauley, DO [address] [place] [address] Social History Tobacco Use Types Packs/Day Years Used Date Smoking Tobacco: Never Assessed Comments Unknown Sex and Gender Information Value Date Recorded Sex Assigned at Not on file 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
--- OUTSIDE RECORDS SUMMARY | 2025-01-15 22:37 | XMS_ITS | Encounter Summary ---
Author Organization [facility] Address [address] [facility] Attn: [place] [address] Care Team Providers Care Farm Loan Representative Name Role Phone Eloina Castro Primary Care Provider [phone] Encounter Details Date Type Department Care Team (Late st Contact Info) Description 1999 Outpatient Historical Jazmín Villafuerte MD [address] [place] [address] Social History Tobacco Use Types Packs/Day Years Used Date Smoking Tobacco: Never Assessed Comments Unknown Sex and Gender Information Value Date Recorded Sex Assigned at Not on file Legal Sex Female 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
--- OUTSIDE RECORDS SUMMARY | 2025-01-15 22:37 | XMS_ITS | Encounter Summary ---
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
--- NOTE | 2025-01-15 22:53 | W.ED.GENADLT ---
Documented by User: MARNI Guzman 01/16/25 00:09 HPI - General Adult General: Chief complaint: General Medical Stated complaint: Possible Hypertension Time Seen by Provider: 01/15/25 22:40 Source: patient Mode of arrival: ambulatory Limitations: no limitations History of Present Illness: Patient is a 24-year-old female who is 6 days here for concerns of elevated blood pressure readings. Patient states she was induced at 39w3d due to elevations in her blood pressure. No diagnosis of preeclampsia/eclampsia based on documentation review. Patient states she has been doing well since discharge but has been intermittently monitoring her blood pressures. She states over the weekend they seem to slowly get higher and higher with blood pressure readings today in the 170s/100s. Patient states she is completely asymptomatic. She is not complaining of a headache or blurry vision. She is not having any chest pain, shortness of breath, difficulty breathing. OB provider is Dr. Ceballos. Onset (ago): day(s) Relieving factors: none Exacerbating factors: none Associated symptoms: Reports no associated symptoms; Deny chest pain, confusion, dyspnea, headache(s), malaise, palpitations or syncope Treatments prior to arrival: none Related Data Previous Rx's ?Medication ?Instructions ?Recorded docusate sodium 100 mg capsule 100 mg PO BID #60 caps 12/06/24 (Colace) magnesium hydroxide 400 mg/5 mL 15 ml PO BID PRN constipation #355 12/06/24 oral suspension (Milk of Magnesia) mL nifedipine 30 mg tablet,extended 30 mg PO DAILY #30 tabs 01/15/25 release 24 hr (Procardia XL) Allergies Allergy/AdvReac Type Severity Reaction Status Date / Time No Known Allergies Allergy Verified 01/09/25 09:07 Review of Systems Const: Denies: fever(s), chills, body aches, fatigue or malaise Eyes: Denies: change in vision, blurry vision, floaters or seeing flashes Card: Denies: chest pain, palpitations, edema, swelling of feet/ankles, lightheadedness, syncope, pre-syncope or orthopnea Resp: Denies: dyspnea or chest congestion Neuro: Denies: headache(s), numbness in extremities, weakness in extremities, sensory changes, lack of coordination, dizziness, confusion, behavioral changes, difficulty communicating thoughts or seizure-like activity PFSH ED PFSH: Medical History No pertinent past medical history neghx: htn, dm, thyroid, dvt/pe PCP: None Surgical History No pertinent past surgical history Family History Family/Other Diabetes maternal great grandmother Father Hypertension Grandmother Diabetes Denies family history of Colon cancer Ovarian cancer Heart disease Breast cancer Uterine cancer Thyroid disease Stroke Social History Smoking and tobacco/nicotine status: never used tobacco/nicotine Alcohol intake: never Substance/Drug Use: never Female Reproductive History: Para: 1 Spontaneous abortions: No Physical Exam Const: COMMON NORMALS: no acute distress, average body habitus, patient oriented x3, no limitations, healthy appearing, alert and well nourished GENERAL APPEARANCE: cooperative ORIENTATION/CONSCIOUSNESS: Yes awake, Yes oriented to person, Yes oriented to place and Yes oriented to time HENMT: COMMON NORMALS: normocephalic and atraumatic HEAD & SCALP: normal to inspection, normocephalic and atraumatic Resp: COMMON NORMALS: normal respiratory effort and clear to auscultation bilaterally AUSCULTATION: clear to auscultation bilaterally Cardio: COMMON NORMALS: regular rate and regular rhythm RATE: regular rate RHYTHM: regular rhythm Extremity: COMMON NORMALS: capillary refill normal, no clubbing, cyanosis or edema, no calf tenderness and no pedal edema GENERAL: Yes normal exam except as noted Neuro: TONY COMA SCALE: document GCS findings [place] coma scale eye opening: Spontaneous Tony coma scale verbal response: Orientated Tony coma scale motor response: Obey commands [place] coma scale total score: 15 COMMON NORMALS: patient oriented x3 and gait normal SENSORIUM/ORIENTATION: Yes alert, Yes oriented to person, Yes oriented to place and Yes oriented to time Course Vital Signs: Vital signs: Vital Signs Temperature 98.1 F 01/15/25 22:30 Pulse Rate 77 01/16/25 00:06 Respiratory Rate 14 01/15/25 23:14 Blood Pressure 131/95 01/16/25 00:06 Pulse Oximetry 95 01/16/25 00:06 Oxygen Delivery Me thod Room Air 01/15/25 22:30 MDM - General Adult Medical Decision Making Patient clinically appears in no acute distress. She has no physical complaints. Blood pressure is 152/110 upon arrival. She was given a dose of 10mg IV labetalol and repeat blood pressure is 127/94. Blood work showing hemoglobin of 11-up from 9.2 following her vaginal delivery. Her platelet count is normal. Her LFTs are normal. Electrolytes are unremarkable/BUN/Cr are normal. She has no proteinuria. Protein/creatinine ratio is 0.21. Post- eclampsia has effectively been ruled out. She will be treated for hypertension with Procardia XL. Will have her follow-up with her OB provider. Return to ED precautions discussed. Case discussed with Dr. Rizzo who agrees with care plan. Medical Records I reviewed the patient's medical records. Lab Data I reviewed the patient's lab results. 01/15/25 22:49 01/15/25 22:49 Laboratory Results WBC 8.32 10^3/uL (3.29-11.43) 01/15/25 22:49 RBC 4.23 10^6/uL (3.85-5.65) 01/15/25 22:49 Hgb 11.00 g/dL (11.27-16.99) L 01/15/25 22:49 Hct 34.8 % (36-47) L 01/15/25 22:49 MCV 82.3 fl (85-98) L 01/15/25 22:49 MCH 26.0 pg (27-33) L 01/15/25 22:49 MCHC 31.6 g/dL (30-55) 01/15/25 22:49 RDW 17.5 % (12.1-15.1) H 01/15/25 22:49 Plt Count 269 10^3/cmm (157-399) 01/15/25 22:49 MPV 10.1 fL (7.4-10.4) 01/15/25 22:49 Neut % (Auto) 73.0 % 01/15/25 22:49 Lymph % (Auto) 18.3 % 01/15/25 22:49 Grady % (Auto) 4.4 % 01/15/25 22:49 Eos % (Auto) 3.1 % 01/15/25 22:49 Baso % (Auto) 0.4 % 01/15/25 22:49 Neut # (Auto) 6.07 10^3/uL (1.8-7.7) 01/15/25 22:49 Lymph # (Auto) 1.5 10^3/uL (0.8-4.8) 01/15/25 22:49 Grady # (Auto) 0.4 10^3/uL (0.2-0.9) 01/15/25 22:49 Eos # (Auto) 0.3 10^3/uL (0.0-0.8) 01/15/25 22:49 Baso # (Auto) 0.0 10^3/uL (0.0-0.1) 01/15/25:49 Nucleated RBC % (auto) 0 % 01/15/25 22: Nucleated RBCs # 0.0 /100WBC 01/15/25 22:49 Sodium 139 mmol/L (136-145) 01/15/25 22:49 Potassium 3.9 mmol/L (3.5-5.1) 01/15/25 22:49 Chloride 106 mmol/L (98-107) 01/15/25 22:49 Carbon Dioxide 21 mmol/L (22-29) L 01/15/25 22:49 Anion Gap 15.9 (5-19) 01/15/25 22:49 BUN 16 mg/dL (6-20) 01/15/25 22:49 Creatinine 0.5 mg/dL (0.5-0.9) 01/15/25 22:49 GFR Calculation 150.3 mL/min (90-130) H 01/15/25 22:49 Glucose 97 mg/dL (65-115) 01/15/25 22:49 Calculated Osmolality 289 mOsm/kg (285-295) 01/15/25 22:49 Calcium 9.2 mg/dL (8.5-10.5) 01/15/25 22:49 Total Bilirubin 0.4 mg/dL (0.15-1.2) 01/15/25 22:49 AST 12 U/L (0-32) 01/15/25 22:49 ALT 10 U/L (0-33) 01/15/25 22:49 Alkaline Phosphatase 154 U/L (35-105) H 01/15/25 22:49 Total Protein 6.6 g/dL (6.6-8.7) 01/15/25 22:49 Albumin 3.6 g/dL (3.5-5.2) 01/15/25 22:49 Globulin 3.0 g/dL (1.3-4.6) 01/15/25 22:49 Urine Color Yellow (Yellow) 01/15/25 23:00 Urine Appearance Clear (CLEAR) 01/15/25 23:00 Urine pH 7 (5-7) 01/15/25 23:00 Ur Specific [place] 1.010 (1.005-1.030) 01/15/25 23:00 Urine Protein Neg (Negative) 01/15/25 23:00 Urine Glucose (UA) Norm (Normal) 01/15/25 23:00 Urine Ketones Negative (Negative) 01/15/25 23:00 Urine Blood 3+ (Negative) H 01/15/25 23:00 Urine Nitrate Negative (Negative) 01/15/25 23:00 Urine Bilirubin Neg (Negative) 01/15/25 23:00 Urine Urobilinogen Norm mg/dL (Negative) 01/15/25 23:00 Ur Leukocyte Esterase Negative (Negative) 01/15/25 23:00 Urine RBC 11-20 /hpf (0-2) H 01/15/25 23:00 Urine WBC 0-5 /hpf (0-5) 01/15/25 23:00 Ur Squamous Epith Cells 11-20 /hpf (0-5) H 01/15/25 23:00 Ur Transition Epith Cell 0-4 /hpf 01/15/25 23:00 Amorphous Sediment Not Reportable 01/15/25 23:00 Urine Bacteria None /hpf (NONE) 01/15/25 23:00 U Random Total Protein 7 mg/dL 01/15/25 23:00 Urine Creatinine 34 mg/dL (28-217) 01/15/25 23:00 Protein/Creatinin Ratio 0.21 mg/mg CR 01/15/25 23:00 No radiology studies performed this visit Discharge Plan Discharge Patient Disposition: Home Clinical Impression: hypertension Condition: Stable Prescriptions: New nifedipine [Procardia XL] 30 mg tablet extended release 24hr 30 mg PO DAILY Qty: 30 0RF Rx Instructions: Take if blood pressure is over 150/90 No Action docusate sodium [Colace] 100 mg capsule 100 mg PO BID Qty: 60 3RF magnesium hydroxide [Milk of Magnesia] 400 mg/5 mL suspension 15 ml PO BID PRN (Reason: constipation) Qty: 355 0RF Rx Instructions: take 15 ml twice daily as needed for constipation Discharge Orders: Discharge ED (Routine); Ordered 01/15/25 Ordered By: Mary Schroeder Referrals: Jacquelin Kent GATE PERSON [Primary Care Provider, Nurse Practitioner] Patient Instructions: Patient Portal & Cristina Instructions Activity Restrictions/Additional Instructions: Please fill your medication and begin taking this as directed. You need to take 1 tablet daily for blood pressures measuring 150/100 or greater. This can be increased after [address] a case management referral to try to get you set up with your OB provider. You need to return to the emergency department for onset of severe headache, visual changes, chest pain, shortness of breath or difficulty breathing, or any other concerns you may have. Print Language: Mongolian Coding Level of Care Code ED Carpentry Supervisor for Chg Fwd Documented by User: Mark Rizzo DO 01/16/25 02:32 HPI - General Adult General: Chief complaint: General Medical Stated complaint: Possible Hypertension Time Seen by Provider: 01/15/25 22:40 Related Data Previous Rx's ?Medication ?Instructions ?Recorded docusate sodium 100 mg capsule 100 mg PO BID #60 caps 12/06/24 (Colace) magnesium hydroxide 400 mg/5 mL 15 ml PO BID PRN constipation #355 12/06/24 oral suspension (Milk of Magnesia) mL nifedipine 30 mg tablet,extended 30 mg PO DAILY #30 tabs 01/15/25 release 24 hr (Procardia XL) Allergies Allergy/AdvReac Type Severity Reaction Status Date / Time No Known Allergies Allergy Verified 01/09/25 09:07 [facility] ED PFSH: Medical History No pertinent past medical history neghx: htn, dm, thyroid, dvt/pe PCP: None Surgical History No pertinent past surgical history Family History Family/Other Diabetes maternal great grandmother Father Hypertension Grandmother Diabetes Denies family history of Colon cancer Ovarian cancer Heart disease Breast cancer Uterine cancer Thyroid disease Stroke Social History Smoking and tobacco/nicotine status: never used tobacco/nicotine Alcohol intake: never Substance/Drug Use: never Physical Exam Neuro: TONY COMA SCALE: document GCS findings [place] coma scale total score: 15 Course Vital Signs: Vital signs: Vital Signs Temperature 98.1 F 01/15/25 22:30 Pulse Rate 77 01/16/25 00:06 Respiratory Rate 14 01/15/25 23:14 Blood Pressure 131/95 01/16/25 00:06 Pulse Oximetry 95 01/16/25 00:06 Oxygen Delivery Me thod Room Air 01/15/25 22:30 MDM - General Adult Medical Decision Making Patient clinically appears in no acute distress. She has no physical complaints. Blood pressure is 152/110 upon arrival. She was given a dose of 10mg IV labetalol and repeat blood pressure is 127/94. Blood work showing hemoglobin of 11-up from 9.2 following her vaginal delivery. Her platelet count is normal. Her LFTs are normal. Electrolytes are unremarkable/BUN/Cr are normal. She has no proteinuria. Protein/creatinine ratio is 0.21. Post- eclampsia has effectively been ruled out. She will be treated for hypertension with Procardia XL. Will have her follow-up with her OB provider. Return to ED precautions discussed. Case discussed with Dr. Rizzo who agrees with care plan. This patient was originally seen by Nadine Schroeder?RHONDA Olivier. I agree with her history, evaluation, and management. Lab Data 01/15/25 22:49 01/15/25 22:49 Laboratory Results WBC 8.32 10^3/uL (3.29-11.43) 01/15/25 22:49 RBC 4.23 10^6/uL (3.85-5.65) 01/15/25 22:49 Hgb 11.00 g/dL (11.27-16.99) L 01/15/25 22:49 Hct 34.8 % (36-47) L 01/15/25 22:49 MCV 82.3 fl (85-98) L 01/15/25 22:49 MCH 26.0 pg (27-33) L 01/15/25 22:49 MCHC 31.6 g/dL (30-55) 01/15/25 22: RDW 17.5 % (12.1-15.1) H 01/15/25 22:49 Plt Count 269 10^3/cmm (157-399) 01/15/25 22:49 MPV 10.1 fL (7.4-10.4) 01/15/25 22:49 Neut % (Auto) 73.0 % 01/15/25 22:49 Lymph % (Auto) 18.3 % 01/15/25:49 Grady % (Auto) 4.4 % 01/15/25: Eos % (Auto) 3.1 % 01/15/25 22:49 Baso % (Auto) 0.4 % 01/15/25:49 Neut # (Auto) 6.07 10^3/uL (1.8-7.7) 01/15/25:49 Lymph # (Auto) 1.5 10^3/uL (0.8-4.8) 01/15/25 22:49 [place]ady # (Auto) 0.4 10^3/uL (0.2-0.9) 01/15/25:49 Eos # (Auto) 0.3 10^3/uL (0.0-0.8) 01/15/25 22:49 Baso # (Auto) 0.0 10^3/uL (0.0-0.1) 01/15/25:49 Nucleated RBC % (auto) 0 % 01/15/25: Nucleated RBCs # 0.0 /100WBC 01/15/25 22:49 Sodium 139 mmol/L (136-145) 01/15/25 22:49 Potassium 3.9 mmol/L (3.5-5.1) 01/15/25:49 Chloride 106 mmol/L (98-107) 01/15/25 22:49 Carbon Dioxide 21 mmol/L (22-29) L 01/15/25 22:49 Anion Gap 15.9 (5-19) 01/15/25 22:49 BUN 16 mg/dL (6-20) 01/15/25 22:49 Creatinine 0.5 mg/dL (0.5-0.9) 01/15/25 22:49 GFR Calculation 150.3 mL/min (90-130) H 01/15/25 22:49 Glucose 97 mg/dL (65-115) 01/15/25 22:49 Calculated Osmolality 289 mOsm/kg (285-295) 01/15/25 22:49 Calcium 9.2 mg/dL (8.5-10.5) 01/15/25 22:49 Total Bilirubin 0.4 mg/dL (0.15-1.2) 01/15/25 22:49 AST 12 U/L (0-32) 01/15/25 22:49 ALT 10 U/L (0-33) 01/15/25 22:49 Alkaline Phosphatase 154 U/L (35-105) H 01/15/25 22:49 Total Protein 6.6 g/dL (6.6-8.7) 01/15/25 22:49 Albumin 3.6 g/dL (3.5-5.2) 01/15/25 22:49 Globulin 3.0 g/dL (1.3-4.6) 01/15/25 22:49 Urine Color Yellow (Yellow) 01/15/25 23:00 Urine Appearance Clear (CLEAR) 01/15/25 23:00 Urine pH 7 (5-7) 01/15/25 23:00 Ur Specific [place] 1.010 (1.005-1.030) 01/15/25 23:00 Urine Protein Neg (Negative) 01/15/25 23:00 Urine Glucose (UA) Norm (Normal) 01/15/25 23:00 Urine Ketones Negative (Negative) 01/15/25 23:00 Urine Blood 3+ (Negative) H 01/15/25 23:00 Urine Nitrate Negative (Negative) 01/15/25 23:00 Urine Bilirubin Neg (Negative) 01/15/25 23:00 Urine Urobilinogen Norm mg/dL (Negative) 01/15/25 23:00 Ur Leukocyte Esterase Negative (Negative) 01/15/25 23:00 Urine RBC 11-20 /hpf (0-2) H 01/15/25 23:00 Urine WBC 0-5 /hpf (0-5) 01/15/25 23:00 Ur Squamous Epith Cells 11-20 /hpf (0-5) H 01/15/25 23:00 Ur Transition Epith Cell 0-4 /hpf 01/15/25 23:00 Amorphous Sediment Not Reportable 01/15/25 23:00 Urine Bacteria None /hpf (NONE) 01/15/25 23:00 U Random Total Protein 7 mg/dL 01/15/25 23:00 Urine Creatinine 34 mg/dL (28-217) 01/15/25 23:00 Protein/Creatinin Ratio 0.21 mg/mg CR 01/15/25 23:00 Discharge Plan Discharge Patient Disposition: Home Clinical Impression: hypertension Condition: Stable Prescriptions: New nifedipine [Procardia XL] 30 mg tablet extended release 24hr 30 mg PO DAILY Qty: 30 0RF Rx Instructions: Take if blood pressure is over 150/90 No Action docusate sodium [Colace] 100 mg capsule 100 mg PO BID Qty: 60 3RF magnesium hydroxide [Milk of Magnesia] 400 mg/5 mL suspension 15 ml PO BID PRN (Reason: constipation) Qty: 355 0RF Rx Instructions: take 15 ml twice daily as needed for constipation Discharge Orders: Discharge ED (Routine); Ordered 01/15/25 Ordered By: Mary Schroeder Referrals: Jacquelin Kent NP [Primary Care Provider, Nurse Practitioner] Patient Instructions: Patient Portal & Cristina Instructions Activity Restrictions/Additional Instructions: Please fill your medication and begin taking this as directed. You need to take 1 tablet daily for blood pressures measuring 150/100 or greater. This can be increased after [address] a case management referral to try to get you set up with your OB provider. You need to return to the emergency department for onset of severe headache, visual changes, chest pain, shortness of breath or difficulty breathing, or any other concerns you may have. Print Language: Mongolian Coding Level of Care Code ED Carpentry Supervisor for Rebeka Hagen
[2025-01-15 22:54] LABS: Hematocrit 34.8 % (36-47); Hemoglobin 11.00 g/dL (11.27-16.99); Mean Corpuscular HGB Conc 31.6 g/dL (30-55); Mean Corpuscular Hemoglobin 26.0 pg (27-33); Mean Corpuscular Volume 82.3 fl (85-98); Nucleated Red Blood Cells % 0 %; Platelet Count 269 10^3/cmm (157-399); Red Blood Count 4.23 10^6/uL (3.85-5.65); White Blood Count 8.32 10^3/uL (3.29-11.43)
[2025-01-15] MEDS: labetalol 5 mg/mL SDV 20mL 10 MG IVP (23:12)
[2025-01-15 23:13] LABS: Glucose Urine UA Norm (Normal); Nitrate Urine Negative (Negative); Specific Gravity, Urine 1.010 (1.005-1.030)
[2025-01-15 23:14] VITALS: BP 142/105; PULSE 78; RESP 14; O2SAT 95
[2025-01-15 23:15] LABS: Alanine Aminotransferase 10 U/L (0-33); Albumin Level 3.6 g/dL (3.5-5.2); Alkaline Phosphatase 154 U/L (35-105); Anion Gap 15.9 (5-19); Aspartate Amino Transferase 12 U/L (0-32); Blood Urea Nitrogen 16 mg/dL (6-20); Calcium 9.2 mg/dL (8.5-10.5); Carbon Dioxide 21 mmol/L (22-29); Chloride 106 mmol/L (98-107); Creatinine Clr Calc Pharmacy 164.9835; Globulin 3.0 g/dL (1.3-4.6); Glucose 97 mg/dL (65-115); Osmolality Calculated 289 mOsm/kg (285-295); Potassium 3.9 mmol/L (3.5-5.1); Sodium 139 mmol/L (136-145); Total Protein 6.6 g/dL (6.6-8.7)
[2025-01-15 23:19] LABS: UA Manual Slide Review YES
[2025-01-15 23:20] LABS: Add Urine Microscopic? YES
[2025-01-15 23:32] LABS: UPRO/UCREAT Ratio 0.21 mg/mg CR
[2025-01-15 23:39] VITALS: BP 127/94; PULSE 85; O2SAT 95
[2025-01-16 00:06] VITALS: BP 131/95; PULSE 77; O2SAT 95
--- NOTE | 2025-01-17 16:23 | PC.NURSE ---
OB referral to Dr. Ceballos sent.
== END 2025-01-16 00:08 | disposition home or self-care (01) ==
PROVIDERS: Emergency Provider Physician Assistant; PCP Nurse Practitioner Family
DX: O16.5 Unspecified maternal hypertension, complicating the puerperium (principal)
CPT/HCPCS: 36415; 80053; 81001; 82570; 84156; 85025; 96374; 99284; J3490